=== PATIENT | female | born 1950 | race Caucasian/White ===

== ENCOUNTER → 2018-04-12 08:00 | Outpatient (CLI) | payer MEDICARE, BC, SELFPAY ==
[2018-04-12 09:25] LABS: Add Manual Diff / Slide Review NO; Basophils Percent Auto 1.1 % (0-2); Eosinophils Percent Auto 13.9 % (2-4); Hematocrit 39.4 % (36-46); Hemoglobin 13.3 g/dL (12.0-16.0); Mean Corpuscular HGB Conc 33.8 % (30-36); Mean Corpuscular Hemoglobin 29.2 PG (26-34); Mean Corpuscular Volume 86.2 fL (80-100); Monocytes Percent Auto 6.9 % (3-14); Neutrophils Absolute Auto 3200 /uL (1500-7000); Neutrophils Percent Auto 55.1 % (50-75); Platelet Count 155 X10^3/uL (150-400); Red Blood Cell Count 4.57 X10^6/uL (4.0-5.2); Red Cell Distribution Width 14.2 % (11.6-14.8); White Blood Cell Count 5.7 X10^3/uL (4.5-11.0)
[2018-04-12 09:42] LABS: Alanine Aminotransferase 21 IU/L (9-52); Albumin 4.4 g/dL (3.5-5.0); Albumin Globulin Ratio 1.2 (1.0-2.8); Alkaline Phosphatase 71 U/L (38-126); Aspartate Aminotransferase 29 IU/L (14-36); Bilirubin Total 0.6 mg/dL (0.2-1.3); Blood Urea Nitrogen 19 mg/dL (7-17); Calcium 9.6 mg/dL (8.4-10.2); Carbon Dioxide 29 mmol/L (22-32); Chloride 104 mmol/L (98-107); Cholesterol 151 mg/dL (140-199); Estimated Glomerular Filt Rate 55.5 mL/min (>60); Globulin 3.8 g/dL (1.7-4.1); Glucose 95 mg/dL (80-110); HDL Cholesterol 44 mg/dL (40-60); HEMOLYSIS < 15 (0-50); LDL Cholesterol Calculated 80 mg/dL (<100); Potassium 4.5 mmol/L (3.4-5.1); Sodium 142 mmol/L (137-145); Total Protein 8.2 g/dL (6.3-8.2); Triglycerides 135 mg/dL (35-150)
[2018-04-12 10:30] LABS: Thyroid Stimulating Hormone 4.27 uIU/mL (0.47-4.68)
== END ==
PROVIDERS: Family Provider Family Medicine; PCP Family Medicine; Visit Provider Family Medicine
DX: I10 Essential (primary) hypertension (principal)
CPT/HCPCS: 36415; 80053; 80061; 84443; 85025

== ENCOUNTER → 2018-04-26 08:26 | Outpatient (CLI) | payer MEDICARE, BC, SELFPAY ==
--- NOTE | 2018-04-26 | DI.MG.S_ITS ---
BILATERAL DIGITAL SCREENING MAMMOGRAM 3D/2D WITH CAD: 04/26/2018 CLINICAL: Routine screening. Comparison is made to exams dated: 08/31/2011 mammogram, 02/04/2009 mammogram, 01/15/2008 mammogram, 11/29/2006 mammogram, and 01/05/2005 mammogram - [facility]. The tissue of both breasts is extremely dense, which lowers the sensitivity of mammography. Current study was also evaluated with a Computer Aided Detection (CAD) system. There is a 0.7 cm oval asymmetry in the left breast middle depth upper region seen on the mediolateral oblique view only. This is best seen on LMLO tomosynthesis slice 13/44. No other significant masses, calcifications, or other findings are seen in either breast. IMPRESSION: INCOMPLETE: NEEDS ADDITIONAL IMAGING EVALUATION The oval asymmetry in the left breast is indeterminate. Additional views with possible ultrasound are recommended. This exam was interpreted at Station ID: [id number]. NOTE: For mammograms, a report in lay terms will be sent to the patient. Approximately 15% of breast malignancies will not be visualized mammographically. In the management of a palpable breast mass, a negative mammogram must not discourage biopsy of a clinically suspicious lesion. Electronically Signed By: Galen Mcfarland M.D. ecl/:04/27/2018 07:10:34 letter sent: Additional Imaging Needed ACR BI-RADS Category 0: Incomplete 3340F
== END ==
PROVIDERS: Family Provider Family Medicine; PCP Family Medicine; Visit Provider Family Medicine
DX: Z12.31 Encounter for screening mammogram for malignant neoplasm of breast (principal)
CPT/HCPCS: 77063; 77067

== ENCOUNTER → 2018-05-10 14:42 | Outpatient (CLI) | payer MEDICARE, BC, SELFPAY ==
--- NOTE | 2018-05-10 | DI.MG.S_ITS ---
UNILATERAL LEFT DIGITAL DIAGNOSTIC MAMMOGRAM 3D/2D WITH ADDITIONAL VIEWS: 05/10/2018 CLINICAL: Additional evaluation requested from prior study. Comparison is made to exams dated: 04/26/2018 mammogram, 08/31/2011 mammogram, and 02/04/2009 mammogram - [facility]. The tissue of left breast is extremely dense, which lowers the sensitivity of mammography. The asymmetry in the left breast middle depth superior region seen on the mediolateral oblique view only is not seen in additional views. No other significant masses or calcifications are seen in the breast. IMPRESSION: There is no mammographic evidence of malignancy. A 1 year screening mammogram is recommended. This exam was interpreted at Station ID: [id number]. NOTE: For mammograms, a report in lay terms will be sent to the patient. Approximately 15% of breast malignancies will not be visualized mammographically. In the management of a palpable breast mass, a negative mammogram must not discourage biopsy of a clinically suspicious lesion. Electronically Signed By: Riya Cisneros M.D. lk/:05/10/2018 15:19:42 letter sent: Normal Exam ACR BI-RADS Category 2: Benign Finding(s) 3342F
== END ==
PROVIDERS: Family Provider Family Medicine; PCP Family Medicine; Visit Provider Family Medicine
DX: R92.8 Other abnormal and inconclusive findings on diagnostic imaging of breast (principal)
CPT/HCPCS: 77065; G0279

== ENCOUNTER → 2018-11-20 09:31 | Outpatient (CLI) | payer MEDICARE, BC, SELFPAY ==
--- NOTE | 2018-11-20 | DI.MRI.S_ITS ---
PROCEDURE: MR BRAIN (IAC) WWO CON INDICATIONS: Sensorineural hearing loss, bilateral TECHNIQUE: Noncontrast sagittal T1 spin echo, axial FLAIR, axial gradient echo, axial diffusion and ADC through the brain. Axial thin-slice 3D CISS, coronal TruFISP, axial T1 spin echo with fat saturation through the internal auditory canals. After the administration of contrast, thin slice axial and coronal T1 spin echo with fat saturation through the internal auditory canals, and axial T1 spin echo with fat saturation through the brain. COMPARISON: None. FINDINGS: Image quality: Excellent. Cerebellopontine angles: No cerebellopontine angle masses. Inner ear structures appear normally formed. No suspicious enhancement in the internal auditory canal or along the course of the 7th cranial nerve. CSF spaces: Ventricles are normal in size and shape. No extra-axial fluid collections. Basal cisterns are patent. Brain: No intracranial bleeds or mass effects. Boggs-white matter interface is intact. No abnormal intracranial enhancement. Diffusion weighted images demonstrate no acute ischemic insults. Brainstem appears normal. Normal intravascular flow voids are present. Skull and face: Calvarial marrow signal is normal. Orbits appear normal. Sinuses: Sinuses and mastoids are clear. IMPRESSION: Normal for age, source of current bilateral sensorineural hearing loss symptoms is not seen. Dictated by: Castillo Peguero M.D. on 11/20/2018 at 11:42 Approved by: Castillo Peguero M.D. on 11/20/2018 at 11:43
== END ==
PROVIDERS: Family Provider Family Medicine; PCP Family Medicine; Visit Provider Otolaryngology
DX: H90.3 Sensorineural hearing loss, bilateral (principal)
CPT/HCPCS: 70553

== ENCOUNTER → 2019-05-04 09:51 | Outpatient (CLI) | payer MEDICARE, BC, SELFPAY ==
[2019-05-04 10:36] LABS: Add Manual Diff / Slide Review NO; Basophils Absolute Auto 0 /uL (0-100); Basophils Percent Auto 0.7 % (0-2); Eosinophils Absolute Auto 200 /uL (0-450); Eosinophils Percent Auto 4.4 % (2-4); Hematocrit 39.1 % (36-46); Hemoglobin 13.8 g/dL (12.0-16.0); Lymphocytes Absolute Auto 1000 /uL (1100-4500); Lymphocytes Percent Auto 18.5 % (25-40); Mean Corpuscular HGB Conc 35.2 % (30-36); Mean Corpuscular Volume 85.2 fL (80-100); Monocytes Absolute Auto 400 /uL (0-900); Monocytes Percent Auto 6.5 % (3-14); Neutrophils Absolute Auto 3900 /uL (1500-7000); Neutrophils Percent Auto 69.9 % (50-75); Platelet Count 139 X10^3/uL (150-400); Red Blood Cell Count 4.59 X10^6/uL (4.0-5.2); Red Cell Distribution Width 13.7 % (11.6-14.8); White Blood Cell Count 5.6 X10^3/uL (4.5-11.0)
[2019-05-04 10:51] LABS: Alanine Aminotransferase 15 IU/L (<35); Albumin 4.6 g/dL (3.5-5.0); Albumin Globulin Ratio 1.2 (1.0-2.8); Alkaline Phosphatase 73 U/L (38-126); Aspartate Aminotransferase 35 IU/L (14-36); BUN Creatinine Ratio 10.9 (6-22); Bilirubin Total 0.8 mg/dL (0.2-1.3); Blood Urea Nitrogen 12 mg/dL (7-17); Calcium 10.1 mg/dL (8.4-10.2); Carbon Dioxide 31 mmol/L (22-32); Chloride 103 mmol/L (98-107); Cholesterol 179 mg/dL (140-199); Estimated Glomerular Filt Rate 49.5 mL/min (>60); Globulin 3.9 g/dL (1.7-4.1); Glucose 99 mg/dL (80-110); HDL Cholesterol 46 mg/dL (40-60); HEMOLYSIS < 15 (0-50); LDL Cholesterol Calculated 110 mg/dL (<100); Sodium 144 mmol/L (137-145); Total Protein 8.5 g/dL (6.3-8.2); Triglycerides 117 mg/dL (35-150)
[2019-05-04 11:35] LABS: Thyroid Stimulating Hormone 2.17 uIU/mL (0.47-4.68)
== END ==
PROVIDERS: PCP Family Medicine; Visit Provider Family Medicine
DX: I73.00 Raynaud's syndrome without gangrene (principal); I10 Essential (primary) hypertension
CPT/HCPCS: 80053; 80061; 84443; 85025

== ENCOUNTER → 2019-05-17 16:24 | Outpatient (CLI) | payer MEDICARE, BC, SELFPAY ==
--- NOTE | 2019-05-17 16:36 | DI.MG.S_ITS ---
Patient Name: ELZA REDDING date: 1950 Sex: F Attending Physician: King Indications: Date: 05/17/2019 16:36 At the request of: MADELYN MONTEZ Procedure: MM screening mammo BI BILATERAL DIGITAL SCREENING MAMMOGRAM 3D/2D WITH CAD: 05/17/2019 CLINICAL: Routine screening. Comparison is made to exams dated: 04/26/2018 mammogram, 08/31/2011 mammogram, and 05/10/2018 mammogram - [facility]. The tissue of both breasts is extremely dense, which lowers the sensitivity of mammography. Current study was also evaluated with a Computer Aided Detection (CAD) system. No significant masses, calcifications, or other findings are seen in either breast. There has been no significant interval change. IMPRESSION: NEGATIVE There is no mammographic evidence of malignancy. A 1 year screening mammogram is recommended. This exam was interpreted at Station ID: [id number]. NOTE: For mammograms, a report in lay terms will be sent to the patient. Approximately 15% of breast malignancies will not be visualized mammographically. In the management of a palpable breast mass, a negative mammogram must not discourage biopsy of a clinically suspicious lesion. Electronically Signed By: Galen bustillos/phoebe:05/17/2019 18:58:20 letter sent: Normal Exam ACR BI-RADS Category 1: Negative 3341F
== END ==
PROVIDERS: PCP Family Medicine; Referring Provider Family Medicine; Visit Provider Family Medicine
DX: Z12.31 Encounter for screening mammogram for malignant neoplasm of breast (principal)
CPT/HCPCS: 77063; 77067

== ENCOUNTER → 2020-05-16 08:05 | Outpatient (CLI) | payer MEDICARE, BC, SELFPAY ==
[2020-05-16 08:54] LABS: BUN Creatinine Ratio 15.2 (6-22); Blood Urea Nitrogen 16 mg/dL (7-17); Calcium 9.6 mg/dL (8.4-10.2); Carbon Dioxide 33 mmol/L (22-32); Chloride 104 mmol/L (98-107); Glucose 98 mg/dL (80-110); HEMOLYSIS < 15 (0-50); Potassium 4.1 mmol/L (3.4-5.1); Sodium 142 mmol/L (137-145)
[2020-05-16 09:08] LABS: Vitamin D 25 Hydroxy (D3) 14.2 ng/mL (30.0-100.0)
[2020-05-16 09:23] LABS: TSH w/ Reflex to FT4 2.54 uIU/mL (0.47-4.68)
== END ==
PROVIDERS: PCP Student in an Organized Health Care Education/Training Program; Referring Provider Student in an Organized Health Care Education/Training Program; Visit Provider Student in an Organized Health Care Education/Training Program
DX: I10 Essential (primary) hypertension (principal)
CPT/HCPCS: 36415; 80048; 82306; 84443

== ENCOUNTER → 2020-05-19 10:19 | Outpatient (CLI) | payer MEDICARE, BC, SELFPAY ==
--- NOTE | 2020-05-19 10:21 | DI.MG.S_ITS ---
BILATERAL DIGITAL SCREENING MAMMOGRAM 3D/2D WITH CAD: 05/19/2020 Comparison is made to exams dated: 05/17/2019 mammogram, 05/10/2018 mammogram, 04/26/2018 mammogram, and 08/31/2011 mammogram - [facility]. The tissue of both breasts is extremely dense, which lowers the sensitivity of mammography. Current study was also evaluated with a Computer Aided Detection (CAD) system. No significant masses, calcifications, or other findings are seen in either breast. There has been no significant interval change. IMPRESSION: NEGATIVE There is no mammographic evidence of malignancy. A 1 year screening mammogram is recommended. This exam was interpreted at Station ID: [id number]. NOTE: For mammograms, a report in lay terms will be sent to the patient. Approximately 15% of breast malignancies will not be visualized mammographically. In the management of a palpable breast mass, a negative mammogram must not discourage biopsy of a clinically suspicious lesion. Electronically Signed By: Suman moore/phoebe:05/19/2020 16:32:38 letter sent: Normal Exam ACR BI-RADS Category 1: Negative 3341F
== END ==
PROVIDERS: PCP Family Medicine; Referring Provider Family Medicine; Visit Provider Family Medicine
DX: Z12.31 Encounter for screening mammogram for malignant neoplasm of breast (principal)
CPT/HCPCS: 77063; 77067

== ENCOUNTER → 2020-05-23 09:57 | Outpatient (CLI) | payer MEDICARE, BC, SELFPAY | PROVIDERS: PCP Student in an Organized Health Care Education/Training Program; Referring Provider Student in an Organized Health Care Education/Training Program; Visit Provider Student in an Organized Health Care Education/Training Program | DX: Z13.820 Encounter for screening for osteoporosis (principal); M81.0 Age-related osteoporosis without current pathological fracture; Z78.0 Asymptomatic menopausal state; I10 Essential (primary) hypertension; R63.6 Underweight; Z87.891 Personal history of nicotine dependence | CPT/HCPCS: 77080; 77081 ==

== ENCOUNTER 2020-09-01 06:56 | Emergency (ER) | payer MEDICARE, BC, SELFPAY ==
--- NOTE | 2020-09-01 07:05 | ED.GENADULT ---
HPI - General Adult General Chief complaint: Extremity Injury, Upper Stated complaint: right shoulder pain Time Seen by Provider: 09/01/20 06:58 Source: patient Mode of arrival: Ambulatory Limitations: no limitations History of Present Illness HPI narrative: Patient is a 70-year-old female who is here for evaluation of left shoulder discomfort. Despite the triage note/chief complaint that is her right shoulder she informed me that it was her left shoulder that she was having discomfort with. She states she had some discomfort yesterday. She was sleeping at the time and it woke her from sleep. It lasted for approximately 1 hour and then completely resolved. She was able to go about the rest of her day without any problems. This past morning she again was woken from sleep with discomfort in the left shoulder. This time and is lasted until this morning. She is afebrile. She denies any trauma. Denies falling. States that it does feel somewhat better with touching it. No pain with movement. No chest pain. No shortness of breath. No rashes. Related Data Home Medications Medication Instructions Recorded Confirmed CALCIUM/PHYTONADIONE/SODIUM/ 1 ctb PO Q DAY #0 08/16/11 07/24/20 (#VIACTIV CALCIUM) cetirizine 10 mg tablet 10 mg PO DAILY PRN tab 05/15/20 07/24/20 Previous Rx's Medication Instructions Recorded gentamicin 0.3 % eye drops 2 drop OPHTHALMIC (EYE) TID #5 ml 08/15/19 atenolol 50 mg tablet 50 mg PO Q DAY #90 tab 05/29/20 denosumab 60 mg/mL subcutaneous 60 mg SUBCUT [id number] #1 ml 06/19/20 syringe montelukast 10 mg tablet See Rx Instructions .ROUTE 08/13/20 .COMPLEX #90 tab Allergies Allergy/AdvReac Type Severity Reaction Status Date / Time aspirin [ASPIRIN] Allergy Mild SEVERE Verified 07/24/20 11:11 ILLNESS ON PERCODAN codeine [CODEINE] Allergy Mild HEADACHE Verified 07/24/20 11:11 oxycodone [OXYCODONE] Allergy Mild SEVERE Verified 07/24/20 11:11 ILLNESS FROM PERCODAN UNABLE TO TAKE LARGE PILLS Allergy Unknown Uncoded 07/24/20 11:11 Review of Systems Constitutional Constitutional: Denies headache(s) ENT Ears, Nose, Mouth, and Throat: Denies headache(s) Cardiovascular Cardiovascular: Denies chest pain and Denies dyspnea Respiratory Respiratory: Denies dyspnea Gastrointestinal Gastrointestinal: Denies abdominal pain Musculoskeletal Comments: Left shoulder pain Integumentary/Breasts Skin/Breast: Denies rash Neurologic Neurologic: Denies headache(s) and Denies paresthesias Hematologic/Lymphatic On Anticoagulants: No Allergic/Immunologic Allergic/Immunologic: Denies urticaria Patient History Medical History Essential hypertension Hearing problem Osteoporosis Seasonal allergies Surgical History Anesthesia Femur fracture (~2011) History of tonsillectomy (~1969) Status post cholecystectomy (~1983) Status post colonoscopy (~2008) Wrist fracture (~2011) Family History Brother Age: 66 Diabetes mellitus Heart disease Grandfather Stroke Mother Osteoporosis Hypertension Social History Smoking Status: Former smoker Smoking Status: Former smoker Exam Initial Vital Signs Initial Vital Signs: Vital Signs Temperature 98.3 F 09/01/20 07:06 Pulse Rate 66 09/01/20 07:06 Respiratory Rate 16 09/01/20 07:06 Blood Pressure 172/92 H 09/01/20 07:06 Pulse Oximetry 97 09/01/20 07:06 Const General: cooperative and comfortable Limitations: mental status not altered HENMT Head: normal to inspection and normocephalic Chest Chest: No tenderness Resp Effort & Inspection: normal respiratory effort Auscultation: clear to auscultation bilaterally Cardio Rate: regular rate Rhythm: regular rhythm Skin Lesions: no lesions Rashes: no rashes Neuro General: patient alert, patient awake and patient oriented x3 Cognition: normal cognition Gait: normal gait Extrem Other: Left wrist and left elbow does not have any discomfort with movement. At baseline she has problem with supination and this does not change any problems with her left shoulder. She is able to forward flex and abduct without discomfort. No tenderness to palpation over the rhomboids. No tenderness to palpation over the biceps tendon. No tenderness over the deltoid. Psych Appearance: grossly normal and well kempt Course Orders Ordered: ED Orders 09/01/20 07:11 EKG-12 Lead Stat 09/01/20 07:27 Complete Blood Count AUTO DIFF Stat Comprehensive Metabolic Panel Stat Lipase Stat Troponin & CK Cardiac Panel Stat Discontinued Medications Ketorolac Tromethamine (Ketorolac 30 Mg/Ml Vial) 30 mg IM NOW ONE Stop: 09/01/20 07:28 Last Admin: 09/01/20 07:45 Dose: 30 mg Documented by: Vital Signs Vital signs: Vital Signs - 8 hr 09/01/20 07:06 Temperature 98.3 F Pulse Rate 66 Respiratory Rate 16 Blood Pressure 172/92 H Pulse Oximetry 97 Medical Decision Making Medical Records Medical records reviewed: Yes I reviewed the patient's medical records. Lab Data Lab results reviewed: Yes I reviewed the patient's lab results. Result diagrams: 09/01/20 07:45 09/01/20 07:45 Labs: Lab Results 09/01/20 09/01/20 Range/Units 07:45 07:45 WBC 4.2 L (4.5-11.0) X10^3/uL RBC 4.46 (4.0-5.2) X10^6/uL Hgb 12.9 (12.0-16.0) g/dL Hct 37.7 (36-46) % MCV 84.6 (80-100) fL MCH 28.8 (26-34) PG MCHC 34.1 (30-36) % RDW 13.9 (11.6-14.8) % Plt Count 127 L (150-400) X10^3/uL Neut % (Auto) 67.3 (50-75) % Lymph % (Auto) 18.8 L (25-40) % [place] % (Auto) 7.9 (3-14) % Eos % (Auto) 4.6 H (2-4) % Baso % (Auto) 1.4 (0-2) % Neut # (Auto) 2800 (6753-6795) /uL Lymph # (Auto) 800 L (6887-5259) /uL [place] # (Auto) 300 (0-900) /uL Eos # (Auto) 200 (0-450) /uL Baso # (Auto) 100 (0-100) /uL Sodium 142 (137-145) mmol/L Potassium 4.2 (3.4-5.1) mmol/L Chloride 106 (98-107) mmol/L Carbon Dioxide 25 (22-32) mmol/L BUN 19 H (7-17) mg/dL Creatinine 0.91 (0.52-1.04) mg/dL Estimated GFR > 60.0 (>60) mL/min BUN/Creatinine Ratio 20.9 (6-22) Glucose 101 (80-110) mg/dL Calcium 9.8 (8.4-10.2) mg/dL Total Bilirubin 0.4 (0.2-1.3) mg/dL AST 25 (14-36) IU/L ALT 10 (<35) IU/L Alkaline Phosphatase 60 (38-126) U/L Total Creatine Kinase 39 (30-135) U/L CK-MB (CK-2) TNP CK-MB (CK-2) Rel Index TNP Troponin I < 0.012 (0.01-0.034) ng/mL Total Protein 8.1 (6.3-8.2) g/dL Albumin 4.3 (3.5-5.0) g/dL Globulin 3.8 (1.7-4.1) g/dL Albumin/Globulin Ratio 1.1 (1.0-2.8) Lipase 341 H (23-300) U/L ECG Data Attestation: I personally reviewed and interpreted this ECG as follows: Prior ECG tracings: not available for review Interpretation: Normal sinus rhythm Ventricular rate is 62 Normal axis Normal QRS Normal QTC Some artifact noted Nonspecific ST T wave changes MDM Narrative Medical decision making narrative: Her EKG has nonspecific changes but her labs are unremarkable to include her troponin which is greater than 6 hours after the onset of constant discomfort. This was drawn because she did not have a specific reproducible discomfort. She has no skin changes over the area. She denies any trauma. Low suspicion for fracture or dislocation. Given her workup here in the emergency department I do suspect that this is musculoskeletal in origin. She was given Toradol. She was given thinks she could try at home to help with the discomfort. Was given return precautions. I feel patient be safely discharged home without further workup. She expressed understanding and agreement. Discharge Plan Departure Patient Disposition: Home Clinical Impression: Acute pain of left shoulder Instructions: How To Perform RICE (Rest, Ice, Compress, Elevate), DI for Shoulder Pain Activity Restrictions/Additional Instructions: You have no restrictions on your activities however I do recommend that you limit the use of your left arm today. You can take Tylenol/ibuprofen this evening. Also recommend icing the area. Contact your primary provider for follow-up especially if your symptoms are not improving. Return to the emergency department for any new or worsening symptoms Prescriptions: No Action CALCIUM/PHYTONADIONE/SODIUM/ (#VIACTIV CALCIUM) 1 ctb PO Q DAY Qty: 0 RF: 0 gentamicin 0.3 % drops 2 drop ophthalmic (eye) TID Qty: 5 RF: 0 atenolol 50 mg tablet 50 mg PO Q DAY Qty: 90 RF: 3 Prolia 60 mg/mL syringe 60 mg SUBCUT [id number] Qty: 1 RF: 2 montelukast 10 mg tablet See Rx Instructions .ROUTE .COMPLEX Qty: 90 RF: 3 cetirizine [Zyrtec] 10 mg tablet 10 mg PO DAILY PRNRF: 0 Referrals: Jean Carlos Liu DO [Primary Care Provider] -
[2020-09-01 07:06] VITALS: BP 172/92; PULSE 66; RESP 16; TEMP 36.8; O2SAT 97; BMI 16.0
[2020-09-01] MEDS: KETOROLAC 30 MG/ML VIAL IM (07:45)
[2020-09-01 07:54] LABS: Add Manual Diff / Slide Review NO; Basophils Absolute Auto 100 /uL (0-100); Basophils Percent Auto 1.4 % (0-2); Eosinophils Absolute Auto 200 /uL (0-450); Eosinophils Percent Auto 4.6 % (2-4); Hematocrit 37.7 % (36-46); Hemoglobin 12.9 g/dL (12.0-16.0); Lymphocytes Absolute Auto 800 /uL (1100-4500); Lymphocytes Percent Auto 18.8 % (25-40); Mean Corpuscular HGB Conc 34.1 % (30-36); Mean Corpuscular Hemoglobin 28.8 PG (26-34); Mean Corpuscular Volume 84.6 fL (80-100); Monocytes Absolute Auto 300 /uL (0-900); Monocytes Percent Auto 7.9 % (3-14); Neutrophils Absolute Auto 2800 /uL (1500-7000); Neutrophils Percent Auto 67.3 % (50-75); Platelet Count 127 X10^3/uL (150-400); Red Blood Cell Count 4.46 X10^6/uL (4.0-5.2); Red Cell Distribution Width 13.9 % (11.6-14.8); White Blood Cell Count 4.2 X10^3/uL (4.5-11.0)
[2020-09-01 08:17] LABS: Alanine Aminotransferase 10 IU/L (<35); Albumin 4.3 g/dL (3.5-5.0); Albumin Globulin Ratio 1.1 (1.0-2.8); Alkaline Phosphatase 60 U/L (38-126); Aspartate Aminotransferase 25 IU/L (14-36); BUN Creatinine Ratio 20.9 (6-22); Bilirubin Total 0.4 mg/dL (0.2-1.3); Blood Urea Nitrogen 19 mg/dL (7-17); Calcium 9.8 mg/dL (8.4-10.2); Carbon Dioxide 25 mmol/L (22-32); Chloride 106 mmol/L (98-107); Creatine Kinase 39 U/L (30-135); Estimated Glomerular Filt Rate > 60.0 mL/min (>60); Globulin 3.8 g/dL (1.7-4.1); Glucose 101 mg/dL (80-110); HEMOLYSIS 18 (0-50); Lipase 341 U/L (23-300); Potassium 4.2 mmol/L (3.4-5.1); Sodium 142 mmol/L (137-145); Total Protein 8.1 g/dL (6.3-8.2)
[2020-09-01 08:28] LABS: Troponin I < 0.012 ng/mL (0.01-0.034)
[2020-09-01 08:46] VITALS: BP 148/98; PULSE 78; O2SAT 98
== END 2020-09-01 08:48 | disposition home or self-care (01) ==
PROVIDERS: Emergency Provider Emergency Medicine; PCP Family Medicine
DX: M25.512 Pain in left shoulder (principal)
CPT/HCPCS: 36415; 80053; 82550; 83690; 84484; 85025; 93005; 96372; 99283; 99284; J1885

== ENCOUNTER → 2021-07-03 07:44 | Outpatient (CLI) | payer MEDICARE, BC, SELFPAY ==
[2021-07-03 10:05] LABS: Hematocrit 35.3 % (36-46); Hemoglobin 12.3 g/dL (12.0-16.0); Mean Corpuscular HGB Conc 34.8 % (30-36); Mean Corpuscular Hemoglobin 29.6 PG (26-34); Mean Corpuscular Volume 85.1 fL (80-100); Platelet Count 155 X10^3/uL (150-400); Red Blood Cell Count 4.14 X10^6/uL (4.0-5.2); Red Cell Distribution Width 14.9 % (11.6-14.8); White Blood Cell Count 4.4 X10^3/uL (4.5-11.0)
[2021-07-03 10:07] LABS: Add Manual Diff / Slide Review YES
[2021-07-03 10:19] LABS: Vitamin D 25 Hydroxy (D3) 56.2 ng/mL (30.0-100.0)
[2021-07-03 10:25] LABS: Alanine Aminotransferase 11 IU/L (<35); Albumin 4.4 g/dL (3.5-5.0); Albumin Globulin Ratio 1.3 (1.0-2.8); Alkaline Phosphatase 58 U/L (38-126); Aspartate Aminotransferase 24 IU/L (14-36); BUN Creatinine Ratio 29.9 (6-22); Bilirubin Total 0.5 mg/dL (0.2-1.3); Blood Urea Nitrogen 32 mg/dL (7-17); Calcium 9.9 mg/dL (8.4-10.2); Carbon Dioxide 24 mmol/L (22-32); Chloride 107 mmol/L (98-107); Cholesterol 185 mg/dL (140-199); Estimated Glomerular Filt Rate 50.7 mL/min (>60); Globulin 3.5 g/dL (1.7-4.1); Glucose 92 mg/dL (80-110); HDL Cholesterol 64 mg/dL (40-60); HEMOLYSIS < 15 (0-50); LDL Cholesterol Calculated 100 mg/dL (<100); Potassium 4.3 mmol/L (3.4-5.1); Sodium 139 mmol/L (137-145); Total Protein 7.9 g/dL (6.3-8.2); Triglycerides 106 mg/dL (35-150)
[2021-07-03 10:31] LABS: Anisocytosis 1+; Neutrophils Absolute Manual 2816 /uL (3000-5900); Total Cells Counted 100
== END ==
PROVIDERS: PCP Family Medicine; Referring Provider Family Medicine; Visit Provider Family Medicine
DX: I10 Essential (primary) hypertension (principal); E55.9 Vitamin D deficiency, unspecified; M81.0 Age-related osteoporosis without current pathological fracture; N18.31 Chronic kidney disease, stage 3a
CPT/HCPCS: 36415; 80053; 80061; 82306; 85007; 85025

== ENCOUNTER 2022-03-09 23:33 | Inpatient (IN) | payer MEDICARE, BC, SELFPAY ==
--- NOTE | 2022-03-09 23:35 | DI.RAD.S_ITS ---
PROCEDURE: XR WRIST RT MIN 3V INDICATIONS: fall with wrist pain TECHNIQUE: 4 views of the wrist were acquired. COMPARISON: [facility], , WRIST MINIMUM 3 VIEWS LEFT, 11/11/2011, 22:05. FINDINGS: Bones: There is a mildly impacted dorsal fracture of the distal radial metaphysis. Visualized osseous structures appear osteopenic. No suspicious bony lesions. Scaphoid view: The scaphoid appears intact. Soft tissues: No suspicious soft tissue calcifications. IMPRESSION: 1. Mildly impacted dorsal fracture of the distal radius. Dictated by: Jonathon Sullivan M.D. on 03/10/2022 at 0:33 Approved by: Jonathon Sullivan M.D. on 03/10/2022 at 0:34
--- NOTE | 2022-03-09 23:35 | DI.RAD.S_ITS ---
PROCEDURE: XR HAND RT MIN 3V INDICATIONS: fall with hand/wrist pain TECHNIQUE: Three views of the right hand acquired. COMPARISON: None. FINDINGS: Bones: There is a mildly impacted dorsal fracture of the distal radius. No definite fracture or dislocation in the hand. Carpal bones are normally aligned. Visualized osseous structures appear osteopenic. No suspicious bony lesions. Soft tissues: No suspicious soft tissue calcifications. IMPRESSION: 1. Mildly impacted fracture of the dorsal radius distally. Dictated by: Jonathon Sullivan M.D. on 03/10/2022 at 0:35 Approved by: Jonathon Sullivan M.D. on 03/10/2022 at 0:36
--- NOTE | 2022-03-09 23:35 | DI.RAD.S_ITS ---
PROCEDURE: XR HIP W PEL IF DONE RT 2V INDICATIONS: fall with hip pain TECHNIQUE: AP pelvis with lateral view of the left hip. COMPARISON: None. FINDINGS: Bones: There is a mildly impacted subcapital fracture of the right femoral neck. Postsurgical changes are demonstrated within the left hip status post prior ORIF of a left femoral neck fracture. Pelvic ring appears intact. No suspicious bony lesions. Soft tissues: The visualized bowel gas pattern is normal. No suspicious soft tissue calcifications. IMPRESSION: 1. Mildly impacted right femoral neck fracture. Dictated by: Jonathon Sullivan M.D. on 03/10/2022 at 1:31 Approved by: Jonathon Sullivan M.D. on 03/10/2022 at 1:32
[2022-03-09 23:37] VITALS: BP 157/89; PULSE 67; RESP 16; TEMP 36.5; O2SAT 97
[2022-03-10] VITALS (7 sets, daily range): BP systolic 101–154; BP diastolic 61–91; PULSE 60–97; RESP 14–20; TEMP 36.4–37.8; O2SAT 93–100; BMI 19.3; BMI 16.6
--- NOTE | 2022-03-10 01:12 | ED_ITS ---
HPI - Trauma General Chief Complaint: Extremity Injury, Upper Stated Complaint: GLF/rt wrist&hip pain Time Seen by Provider: 03/09/22 23:35 Source: EMS Mode of arrival: EMS History of Present Illness HPI narrative: 71-year-old female former smoker with history of speech deficit, dysphagia, aortic valve calcification and cardiomegaly presents by EMS for evaluation of a ground level fall which resulted in right wrist and hip injury. She denies any prodromal symptoms such as dizziness, weakness or lightheadedness and states that she had fallen earlier today suffering injuries as stated. Both wrist and hip have increased pain with range of motion and palpation. She denies any head neck or back pain. She denies any chest pain or shortness of breath. She is had no nausea, vomiting or diarrhea. Related Data Home Medications Medication Instructions Recorded Confirmed CALCIUM/PHYTONADIONE/SODIUM/ 1 ctb PO Q DAY ##0 08/16/11 07/23/21 (#VIACTIV CALCIUM) cetirizine 10 mg tablet (Zyrtec) 10 mg PO DAILY PRN 05/15/20 07/23/21 Previous Rx's Medication Instructions Recorded gentamicin 0.3 % eye drops 2 drop ophthalmic (eye) TID #5 mL 08/15/19 denosumab 60 mg/mL subcutaneous 60 mg SUBCUT [id number] #1 mL 06/19/20 syringe (Prolia) montelukast 10 mg tablet See Rx Instructions .Route 08/13/20 .COMPLEX #90 tabs diltiazem HCl 360 mg 360 mg PO DAILY #90 caps 10/09/21 capsule,extended release 24 hr Allergies Allergy/AdvReac Type Severity Reaction Status Date / Time aspirin [ASPIRIN] Allergy Mild SEVERE Verified 07/23/21 13:44 ILLNESS ON PERCODAN codeine [CODEINE] Allergy Mild HEADACHE Verified 07/23/21 13:44 oxycodone [OXYCODONE] Allergy Mild SEVERE Verified 07/23/21 13:44 ILLNESS FROM PERCODAN UNABLE TO TAKE LARGE PILLS Allergy Unknown Uncoded 07/23/21 13:44 Review of Systems Review of Systems Narrative: GENERAL: Denies chills, fatigue, malaise, fever, sweats. HEENT: Denies sinus pain, ear pain, sore throat, difficulty swallowing, dizz iness. RESPIRATORY: Denies dyspnea, cough, wheezing, hemoptysis, sputum. CARDIOVASCULAR: Denies chest pain, palpitations, orthopnea, edema, GASTROINTESTINAL: Denies nausea, vomiting, abdominal pain, diarrhea, constipation, melena. : Denies dysuria, frequency, incontinence, hematuria, urinary retention. MUSCULOSKELETAL: See HPI SKIN: Denies rash, skin lesions, or other NEUROLOGIC: Denies weakness, headache, numbness, change in speech, confusion, seizures, incoordination. PSYCHIATRIC: No concerning psychosocial issues. 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 Essential hypertension Hearing problem Medicare annual wellness visit, subsequent Osteoporosis Respiratory infection Seasonal allergies Surgical History Anesthesia Femur fracture (~2011) History of tonsillectomy (~1969) Status post cholecystectomy (~1983) Status post colonoscopy (~2008) Wrist fracture (~2011) Family History Brother Age: 68 Diabetes mellitus Heart disease Grandfather Stroke Mother Osteoporosis Hypertension Social History Smoking Status: Former smoker Smoking Status: Former smoker Substance Use Type: does not use Exam Narrative Exam Narrative: GENERAL: [71] year old patient appears stated age. Well-developed patient, in mild distress. Nonverbal but with full understanding and able to communicate by nonverbal methods in by the written word HEAD: Atraumatic. Normocephalic. EYES: Pupils equal round and reactive. Extraocular motions intact. No scleral icterus. No injection or drainage. ENT: Nose without bleeding, purulent drainage. Throat without erythema, tonsillar hypertrophy or exudate. Airway patent. NECK: Trachea midline. Non tender CARDIOVASCULAR: Regular rate and rhythm without murmurs, gallops, or rubs. RESPIRATORY: Clear to auscultation. Breath sounds equal bilaterally. No wheezes, rales, or rhonchi. GASTROINTESTINAL: Abdomen soft, non-tender, nondistended. EXTREMITIES: Tenderness to palpation of right wrist with some dark purple ecchymosis, increased pain with range of motion and palpation, this is closed and neurovascularly intact. Additionally she has pain in her right hip without shortening or external rotation. Neurovascularly intact distal to the injury BACK: Nontender without deformity or crepitance. No flank tenderness. NEURO: AOx3. SKIN: No rash or erythema of visible areas Initial Vital Signs Initial Vital Signs: Vital Signs Temperature 97.7 F 03/09/22 23:37 Pulse Rate 67 03/09/22 23:37 Respiratory Rate 16 03/09/22 23:37 Blood Pressure 157/89 H 03/09/22 23:37 Pulse Oximetry 97 03/09/22 23:37 Oxygen Delivery Method 03/09/22 23:37 Procedures Orthopedic Splinting/Casting Injury #1: Side: right Upper Extremity Injury Location: wrist Upper Extremity Immobilizer: volar splint Post splinting neuro exam: intact Post splinting vascular exam: intact Course Orders Ordered: ED Orders 03/09/22 23:35 XR hand RT min 3V Stat XR hip w pel if done RT 2V Stat XR wrist RT min 3V Stat 03/10/22 01:45 COVID19 -Nasal RAPID/Pre-Proc Stat 03/10/22 02:03 CBC Auto Diff [Complete Blood Count AUTO DIFF] Stat CMP [Comprehensive Metabolic Panel] Stat Prothrombin Time INR Stat Discontinued Medications Hydromorphone HCl (Hydromorphone 0.5 Mg Inj) 0.5 mg IV NOW ONE Stop: 03/10/22 02:49 Last Admin: 03/10/22 02:53 Dose: 0.5 mg Documented By: AP Ondansetron HCl (Ondansetron 4 Mg/2 Ml Inj) 4 mg IV NOW ONE Stop: 03/10/22 02:49 Last Admin: 03/10/22 02:52 Dose: 4 mg Documented By: AP Vital Signs Vital signs: Vital Signs - 8 hr 03/09/22 23:37 03/10/22 02:09 Temperature 97.7 F Pulse Rate 67 60 Respiratory Rate 16 16 Blood Pressure 157/89 H 142/80 H Pulse Oximetry 97 97 Oxygen Delivery Method Room Air Room Air MDM - Trauma Lab Data Result diagrams: 03/10/22 02:03 03/10/22 02:03 Labs: Lab Results 03/10/22 03/10/22 03/10/22 Range/Units 01:45 02:03 02:03 WBC 12.7 H (4.5-11.0) X10^3/uL RBC 4.21 (4.0-5.2) X10^6/uL Hgb 12.4 (12.0-16.0) g/dL Hct 36.0 (36-46) % MCV 85.6 (80-100) fL MCH 29.4 (26-34) PG MCHC 34.3 (30-36) % RDW 14.2 (11.6-14.8) % Plt Count 185 (150-400) X10^3/uL Neut % (Auto) 91.0 H (50-75) % Lymph % (Auto) 5.5 L (25-40) % Cameron % (Auto) 3.2 (3-14) % Eos % (Auto) 0.0 L (2-4) % Baso % (Auto) 0.3 (0-2) % Neut # (Auto) 42520 H (7735-7837) /uL Lymph # (Auto) 700 L (9542-9172) /uL Cameron # (Auto) 400 (0-900) /uL Eos # (Auto) 0 (0-450) /uL Baso # (Auto) 0 (0-100) /uL PT 14.9 H (10.1-12.7) SECONDS INR 1.3 (0.9-1.3) Sodium (137-145) mmol/L Potassium (3.4-5.1) mmol/L Chloride (98-107) mmol/L Carbon Dioxide (22-32) mmol/L BUN (7-17) mg/dL Creatinine (0.52-1.04) mg/dL Estimated GFR (>60) mL/min BUN/Creatinine Ratio (6-22) Glucose (80-110) mg/dL Calcium (8.4-10.2) mg/dL Total Bilirubin (0.2-1.3) mg/dL AST (14-36) IU/L ALT (<35) IU/L Alkaline Phosphatase (38-126) U/L Total Protein (6.3-8.2) g/dL Albumin (3.5-5.0) g/dL Globulin (1.7-4.1) g/dL Albumin/Globulin Ratio (1.0-2.8) SARS-CoV-2 (PCR) Negative (Negative) 03/10/22 Range/Units 02:03 WBC (4.5-11.0) X10^3/uL RBC (4.0-5.2) X10^6/uL Hgb (12.0-16.0) g/dL Hct (36-46) % MCV (80-100) fL MCH (26-34) PG MCHC (30-36) % RDW (11.6-14.8) % Plt Count (150-400) X10^3/uL Neut % (Auto) (50-75) % Lymph % (Auto) (25-40) % Cameron % (Auto) (3-14) % Eos % (Auto) (2-4) % Baso % (Auto) (0-2) % Neut # (Auto) (5832-2955) /uL Lymph # (Auto) (1376-9017) /uL Cameron # (Auto) (0-900) /uL Eos # (Auto) (0-450) /uL Baso # (Auto) (0-100) /uL PT (10.1-12.7) SECONDS INR (0.9-1.3) Sodium 143 (137-145) mmol/L Potassium 4.6 (3.4-5.1) mmol/L Chloride 106 (98-107) mmol/L Carbon Dioxide 26 (22-32) mmol/L BUN 27 H (7-17) mg/dL Creatinine 1.21 H (0.52-1.04) mg/dL Estimated GFR 48 L (>60) mL/min BUN/Creatinine Ratio 22.3 H (6-22) Glucose 102 (80-110) mg/dL Calcium 9.8 (8.4-10.2) mg/dL Total Bilirubin 0.9 (0.2-1.3) mg/dL AST 51 H (14-36) IU/L ALT 30 (<35) IU/L Alkaline Phosphatase 66 (38-126) U/L Total Protein 7.9 (6.3-8.2) g/dL Albumin 4.5 (3.5-5.0) g/dL Globulin 3.4 (1.7-4.1) g/dL Albumin/Globulin Ratio 1.3 (1.0-2.8) SARS-CoV-2 (PCR) (Negative) Imaging Data Extremity x-ray #1: Radiologist's Impression: Sethi,Veronika L??71??F??1950 ? Allergy/Adv: aspirin, codeine, oxycodone, [UNABLE TO TAKE LARGE PILLS] (More??) Close Wrist X-Ray (Signed) Sullivan,Jonathon - 03/09/22 Hip X-Ray 03/09/22 Hand X-Ray (Signed) Jonathon Sullivan - 03/09/22 DEXA Result 05/23/20 Bone Densitometry 05/23/20 Mammogram Screening (Signed) Angel Kellern - 05/19/20 Mammogram Screening (Signed) Galen Mcfarland - 05/17/19 MRI Orbit/Face/Neck/IAC (Signed) Castillo Peguero - 11/20/18 Mammogram, Additional Views (Signed) BlayneRiya - 05/10/18 Mammogram Screening (Signed) Galen Mcfarland - 04/26/18 Launch?Image [address] [address] XRay Report Signed Patient: Veronika Sethi MR#: [id number] : 1950 Acct:[id number] Age/Sex: 71 / F Date of Service: 03/09/22 Loc: Accession Number: [id number] ?? Procedure: XR wrist RT min 3V Ordering Provider: Roger Ledezma D.O. PROCEDURE:? XR WRIST RT MIN 3V ? INDICATIONS: fall with wrist pain ? TECHNIQUE:? 4 views of the wrist were acquired.? ? COMPARISON:? [facility], WRIST MINIMUM 3 VIEWS LEFT, 11/11/2011, 22:05. ? FINDINGS:? ? Bones:? There is a mildly impacted dorsal fracture of the distal radial metaphysis.? Visualized osseous structures appear osteopenic.? No suspicious bony lesions.? ? Scaphoid view:? The scaphoid appears intact. ? Soft tissues:? No suspicious soft tissue calcifications.? ? IMPRESSION:? ? 1. Mildly impacted dorsal fracture of the distal radius. ? ? Dictated by: Jonathon Sullivan M.D. on 03/10/2022 at 0:33 ? ? Approved by: Jonathon Sullivan M.D. on 03/10/2022 at 0:34 ? Abdominal x-ray: Radiologist's Impression: [address] [address] XRay Report Signed Patient: Veronika Sethi MR#: [id number] : 1950 Acct:[id number] Age/Sex: 71 / F Date of Service: 03/09/22 Loc: ED Accession Number: [id number] ?? Procedure: XR hip w pel if done RT 2V Ordering Provider: Roger Ledezma D.O. PROCEDURE:? XR HIP W PEL IF DONE RT 2V ? INDICATIONS:? fall with hip pain ? TECHNIQUE:? AP pelvis with lateral view of the left hip. ? COMPARISON:? None. ? FINDINGS:? ? Bones:? There is a mildly impacted subcapital fracture of the right femoral neck.? Postsurgical changes are demonstrated within the left hip status post prior ORIF of a left femoral neck fracture.? Pelvic ring appears intact.? No suspicious bony lesions.? ? Soft tissues:? The visualized bowel gas pattern is normal.? No suspicious soft tissue calcifications.? ? ? IMPRESSION:? ? 1. Mildly impacted right femoral neck fracture. ? Dictated by: Jonathon Sullivan M.D. on 03/10/2022 at 1:31 ? ? Approved by: Jonathon Sullivan M.D. on 03/10/2022 at 1:32 ? Discharge Plan Departure Patient Disposition: Admitted As Inpatient Clinical Impression: Closed fracture of right hip, Distal radial fracture Admit Date/Time: 03/10/22 02:32 Admit Provider: Conrad Graham
[2022-03-10 02:01] LABS: COVID19 -Nasal RAPID Negative (Negative)
[2022-03-10 02:10] LABS: Add Manual Diff / Slide Review NO; Basophils Absolute Auto 0 /uL (0-100); Basophils Percent Auto 0.3 % (0-2); Eosinophils Absolute Auto 0 /uL (0-450); Hemoglobin 12.4 g/dL (12.0-16.0); Lymphocytes Absolute Auto 700 /uL (1100-4500); Lymphocytes Percent Auto 5.5 % (25-40); Mean Corpuscular HGB Conc 34.3 % (30-36); Mean Corpuscular Hemoglobin 29.4 PG (26-34); Mean Corpuscular Volume 85.6 fL (80-100); Monocytes Absolute Auto 400 /uL (0-900); Monocytes Percent Auto 3.2 % (3-14); Neutrophils Absolute Auto 11500 /uL (1500-7000); Platelet Count 185 X10^3/uL (150-400); Red Blood Cell Count 4.21 X10^6/uL (4.0-5.2); Red Cell Distribution Width 14.2 % (11.6-14.8); White Blood Cell Count 12.7 X10^3/uL (4.5-11.0)
[2022-03-10 02:17] LABS: INR 1.3 (0.9-1.3); Prothrombin Time 14.9 SECONDS (10.1-12.7)
[2022-03-10 02:21] LABS: Alanine Aminotransferase 30 IU/L (<35); Albumin 4.5 g/dL (3.5-5.0); Albumin Globulin Ratio 1.3 (1.0-2.8); Alkaline Phosphatase 66 U/L (38-126); Aspartate Aminotransferase 51 IU/L (14-36); BUN Creatinine Ratio 22.3 (6-22); Bilirubin Total 0.9 mg/dL (0.2-1.3); Blood Urea Nitrogen 27 mg/dL (7-17); Calcium 9.8 mg/dL (8.4-10.2); Carbon Dioxide 26 mmol/L (22-32); Chloride 106 mmol/L (98-107); Estimated Glomerular Filt Rate 48 mL/min (>60); Globulin 3.4 g/dL (1.7-4.1); Glucose 102 mg/dL (80-110); HEMOLYSIS < 15 (0-50); Potassium 4.6 mmol/L (3.4-5.1); Sodium 143 mmol/L (137-145); Total Protein 7.9 g/dL (6.3-8.2)
[2022-03-10] MEDS: ONDANSETRON 4 MG/2 ML INJ IV ×2 (02:52→08:52)
[2022-03-10] MEDS: HYDROMORPHONE 0.5 MG INJ IV ×3 (02:53→20:34)
--- NOTE | 2022-03-10 05:08 | P.HP_ITS ---
History of Present Illness History of Present Illness Chief complaint: GLF/rt wrist&hip pain Narrative: 71-year-old female former smoker with history of speech deficit, dysphagia, aortic valve calcification and cardiomegaly presents by EMS for evaluation of a ground level fall which resulted in right wrist and hip injury.? She denies any prodromal symptoms such as dizziness, weakness or lightheadedness and states that she had fallen earlier today suffering injuries as stated.? Both wrist and hip have increased pain with range of motion and palpation.? She denies any head neck or back pain.? She denies any chest pain or shortness of breath.? She is had no nausea, vomiting or diarrhea.I called patient daughter Ms. Rao who works here at [facility], confirms more details regarding patient's overall status of health. Patient is been having weight loss for almost 1 year, attributed to poor eating and poor swallowing efforts. She had an extensive malignancy workup done as an outpatient, negative. She does have speech therapy appointment today for swallow evaluation, unclear etiology are no specific diagnosis given at this time. Patient communicates mostly by writing on the white board. Patient was in pain when I saw her on the floor, improved with Dilaudid. After pain medication, she looks more comfortable. It is unclear from the notes are the history whether patient is on diltiazem for irregular heart rate versus just hypotension? 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 Essential hypertension Hearing problem Medicare annual wellness visit, subsequent Osteoporosis Respiratory infection Seasonal allergies Surgical History Anesthesia Femur fracture (~2011) History of tonsillectomy (~1969) Status post cholecystectomy (~1983) Status post colonoscopy (~2008) Wrist fracture (~2011) Family & Social History Family History Brother Age: 68 Diabetes mellitus Heart disease Grandfather Stroke Mother Osteoporosis Hypertension Safety & Behavioral: Feels Safe in Current Yes Environment Been Physically Hurt or No Threatened By a Person Tobacco & Substance use: Smoking Status Former smoker Substance Use Type does not use Comment: Patient's daughter is the primary personnel officer. Usually independent at baseline. Meds Home Medications and Allergies Home Medications Medication Instructions Recorded Confirmed Type diltiazem HCl 360 mg 360 mg PO DAILY #90 caps 10/09/21 03/10/22 Rx capsule,extended release 24 hr Allergies Allergy/AdvReac Type Severity Reaction Status Date / Time aspirin [ASPIRIN] Allergy Mild SEVERE Verified 07/23/21 13:44 ILLNESS ON PERCODAN codeine [CODEINE] Allergy Mild HEADACHE Verified 07/23/21 13:44 oxycodone [OXYCODONE] Allergy Mild SEVERE Verified 07/23/21 13:44 ILLNESS FROM PERCODAN UNABLE TO TAKE LARGE PILLS Allergy Unknown Uncoded 07/23/21 13:44 Review of Systems Review of Systems Narrative: All other systems reviewed, negative other than as mentioned in HPI. No fevers no chills. Exam Vital Signs (past 8 hours): - 03/09/22 23:37 03/10/22 02:09 03/10/22 02:59 Temperature 97.7 F Pulse Rate 67 60 70 Respiratory Rate 16 16 14 Blood Pressure 157/89 H 142/80 H 145/91 H Pulse Oximetry 97 97 97 Oxygen Delivery Method Room Air Room Air Nasal Cannula Oxygen Flow Rate 3 03/10/22 03:45 Temperature 97.6 F Pulse Rate 76 Respiratory Rate 18 Blood Pressure 101/71 Pulse Oximetry 98 Oxygen Delivery Method Oxygen Flow Rate 2 Oxygen Delivery Method Nasal Cannula Oxygen Flow Rate 2 Narrative Exam Narrative: Patient was in mild distress because of the pain, now looks comfortable. Patient is emaciated, poorly nourished, cachectic, lying in the bed, unable to move her right lower extremity because of the pain and fracture. Her right upper extremity is in the cast. Loss of significant muscle mass. Generalized weakness. Heart exam positive for irregular heart rate, potential systolic murmur, unclear. Constitutional, HEENT, eyes, neck, chest, respiratory, cardiovascular, GI, skin, neuro, extremities, psych exam done, negative other than as mentioned above. Objective Labs Result Diagrams: 03/10/22 02:03 03/10/22 02:03 Labs: Laboratory Results - last 24 hr 03/10/22 03/10/22 03/10/22 01:45 02:03 02:03 WBC 12.7 H RBC 4.21 Hgb 12.4 Hct 36.0 MCV 85.6 MCH 29.4 MCHC 34.3 RDW 14.2 Plt Count 185 Neut % (Auto) 91.0 H Lymph % (Auto) 5.5 L Bartholomew % (Auto) 3.2 Eos % (Auto) 0.0 L Baso % (Auto) 0.3 Neut # (Auto) 08139 H Lymph # (Auto) 700 L Bartholomew # (Auto) 400 Eos # (Auto) 0 Baso # (Auto) 0 PT 14.9 H INR 1.3 Sodium Potassium Chloride Carbon Dioxide BUN Creatinine Estimated GFR BUN/Creatinine Ratio Glucose Calcium Total Bilirubin AST ALT Alkaline Phosphatase Total Protein Albumin Globulin Albumin/Globulin Ratio SARS-CoV-2 (PCR) Negative 03/10/22 02:03 WBC RBC Hgb Hct MCV MCH MCHC RDW Plt Count Neut % (Auto) Lymph % (Auto) Bartholomew % (Auto) Eos % (Auto) Baso % (Auto) Neut # (Auto) Lymph # (Auto) Bartholomew # (Auto) Eos # (Auto) Baso # (Auto) PT INR Sodium 143 Potassium 4.6 Chloride 106 Carbon Dioxide 26 BUN 27 H Creatinine 1.21 H Estimated GFR 48 L BUN/Creatinine Ratio 22.3 H Glucose 102 Calcium 9.8 Total Bilirubin 0.9 AST 51 H ALT 30 Alkaline Phosphatase 66 Total Protein 7.9 Albumin 4.5 Globulin 3.4 Albumin/Globulin Ratio 1.3 SARS-CoV-2 (PCR) Assessment & Plan Assessment and plan (1) Closed fracture of right hip: Status: Acute (2) 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 No further testing needed. EKG pending. With patient significant cardiac history, poor nutritional status, I expect the patient to stay more than 2 midnights hence inpatient status admission. Orthopedics for further recommendations. Appropriate pain control. Cautioned with the pain medication. Unclear why the patient is on Cardizem, whether she is taking or not, blood pressures are borderline, we will hold blood pressure medication at this time. Consider beta maik as needed if patient's blood pressure not controlled. History of hypertension, cardiomegaly, left ventricular hypertrophy, aortic valve calcification -patient had a cardiology evaluation July, no specific treatment recommended at this time. Continue to monitor blood pressures while the patient in the hospital. Severe protein calorie malnutrition -we will get speech therapy given history of dysphagia to advance the diet and also teamcenter solution architect during this hospitalization. SCDs for DVT prophylaxis at this time, consider chemical prophylaxis based on orthopedic recommendations. PPI for GI prophylaxis. Patient is full code. Overall prognosis is guarded. I explained the high-risk situation to patient and also daughter on the phone. We will continue to monitor the patient closely. Time Spent With Patient Critical Care time: I spent a total of [] minutes of critical care time on this patient's care today; this time is exclusive of procedural time.
[2022-03-10] MEDS: DEXTROSE 5%-0.9% NS 1,000 ML 100 ML IV ×2 (05:43→15:44)
--- NOTE | 2022-03-10 07:42 | PM.CN ---
History of Present Illness Consult details Date Patient Seen: 03/10/22 Time Patient Seen: 07:43 Chief complaint: GLF/rt wrist&hip pain Reason for consult: right fem neck fx, r wrist fx Requesting provider: Roger Ledezma Narrative: 71 F BMI 19.3 with hx dyshagia, wt loss and osteoporotic fxs, fell and had r wrist and r hip pain. communicates mostly by writing. Ok works at . c/o R hip and R wrist pain. had wt loss work up outpt recently negative for malignancy. no f/c/n/v. remot hx L wrist fx and L CRPP fem neck [facility] 2011 Meds Home Medications and Allergies Home Medications Medication Instructions Recorded Confirmed Type diltiazem HCl 360 mg 360 mg PO DAILY #90 caps 10/09/21 03/10/22 Rx capsule,extended release 24 hr Allergies Allergy/AdvReac Type Severity Reaction Status Date / Time aspirin [ASPIRIN] Allergy Mild SEVERE Verified 07/23/21 13:44 ILLNESS ON PERCODAN codeine [CODEINE] Allergy Mild HEADACHE Verified 07/23/21 13:44 oxycodone [OXYCODONE] Allergy Mild SEVERE Verified 07/23/21 13:44 ILLNESS FROM PERCODAN UNABLE TO TAKE LARGE PILLS Allergy Unknown Uncoded 07/23/21 13:44 Review of Systems Review of Systems Narrative: wt loss, dysphagia, difficult speaking. no sob, cp, n, v Exam Vital Signs (past 8 hours): - 03/10/22 02:09 03/10/22 02:59 03/10/22 03:45 Temperature 97.6 F Pulse Rate 60 70 76 Respiratory Rate 16 14 18 Blood Pressure 142/80 H 145/91 H 101/71 Pulse Oximetry 97 97 98 Oxygen Delivery Method Room Air Nasal Cannula Oxygen Flow Rate 3 2 Oxygen Delivery Method Nasal Cannula Oxygen Flow Rate 2 Narrative Exam Narrative: alert oriented HEENT NCAT REsp: NC lungs clear CV: RRR : lyles RUE: voalr wrist splint, demonstrates finger ROM, brisk cap refill, full elbow ROM R LE: ttp log roll, grossle nL alignment. limit s/M exam secondary to known femral neck fx. 5/5 DF/PF, calf soft SCDS in place healed incision L hip Objective Imaging ap pelivs lat r hip: My impression: valgus femoral neck fx R , 3 screws L fem neck r wrist fracture: My impression: minimal dorsal impacted dR kenny, extra articular Labs Result Diagrams: 03/10/22 02:03 03/10/22 02:03 Labs: Laboratory Results - last 24 hr 03/10/22 03/10/22 03/10/22 01:45 02:03 02:03 WBC 12.7 H RBC 4.21 Hgb 12.4 Hct 36.0 MCV 85.6 MCH 29.4 MCHC 34.3 RDW 14.2 Plt Count 185 Neut % (Auto) 91.0 H Lymph % (Auto) 5.5 L Beckham % (Auto) 3.2 Eos % (Auto) 0.0 L Baso % (Auto) 0.3 Neut # (Auto) 64636 H Lymph # (Auto) 700 L Beckham # (Auto) 400 Eos # (Auto) 0 Baso # (Auto) 0 PT 14.9 H INR 1.3 Sodium Potassium Chloride Carbon Dioxide BUN Creatinine Estimated GFR BUN/Creatinine Ratio Glucose Calcium Total Bilirubin AST ALT Alkaline Phosphatase Total Protein Albumin Globulin Albumin/Globulin Ratio SARS-CoV-2 (PCR) Negative 03/10/22 02:03 WBC RBC Hgb Hct MCV MCH MCHC RDW Plt Count Neut % (Auto) Lymph % (Auto) Beckham % (Auto) Eos % (Auto) Baso % (Auto) Neut # (Auto) Lymph # (Auto) Beckham # (Auto) Eos # (Auto) Baso # (Auto) PT INR Sodium 143 Potassium 4.6 Chloride 106 Carbon Dioxide 26 BUN 27 H Creatinine 1.21 H Estimated GFR 48 L BUN/Creatinine Ratio 22.3 H Glucose 102 Calcium 9.8 Total Bilirubin 0.9 AST 51 H ALT 30 Alkaline Phosphatase 66 Total Protein 7.9 Albumin 4.5 Globulin 3.4 Albumin/Globulin Ratio 1.3 SARS-CoV-2 (PCR) [facility] Medical History 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 Essential hypertension Hearing problem Medicare annual wellness visit, subsequent Osteoporosis Respiratory infection Seasonal allergies Surgical History Anesthesia Femur fracture (~2011) History of tonsillectomy (~1969) Status post cholecystectomy (~1983) Status post colonoscopy (~2008) Wrist fracture (~2011) Family History Brother Age: 68 Diabetes mellitus Heart disease Grandfather Stroke Mother Osteoporosis Hypertension Social History household members: children Tobacco & Substance Use Smoking Status: Former smoker alcohol intake: never Assessment & Plan Assessment and plan (1) Closed fracture of right hip: Status: Acute Plan: R femoral neck fracture, displaced. recommend hemiarthroplasty to allow immediate WB, mobility. will work on OR timing-not available today - plan r hemiarthroplasty with tomorrow TH- about 6pm (2) Distal radial fracture: Status: Acute Plan: minimal impaction extra artic R DR cox, NONop - volar splint and can convert to short arm cast or velcro wrsit splint when able in clinic. may WB through forearm. (3) Osteoporotic hip fracture: Status: Acute (4) Malnutrition: Status: Acute Assessment & Plan narrative: see above. pt with R hip fx - indicated for surgery to allow mobilization and reduce morbiditiy/mortality from prolonged bed rest- osteoporotic hip fracture, co morbid malnutrition COVID-19 COVID-19 status: Negative Time Spent With Patient Time with patient: less than 30 minutes Critical Care time: I spent a total of [] minutes of critical care time on this patient's care today; this time is exclusive of procedural time.
--- NOTE | 2022-03-10 09:27 | CM.DANOTE ---
Addendum entered by DONTA Louis 03/10/22 13:35: ADD: SW attempted to meet with pt two more times but once ST was bedside and once pt sleeping very soundly finally. Per RN, pt gave approval for staff to update and talk to her Dtr Vanessa. SW called Dtr Vanessa (who works in pt accounts downstairs [phone]) and explained role and Dtr confirms that pt now lives alone and no other supportive services in place at this time. Pt's son used to live with her in [place] and assist but he moved out of state about a year or so ago and they have been attempting to talk pt into selling her home and moving closer to family in [facility] but pt has been resistant to that. Dtr does not think pt likely will qualify for Medicaid at this time as she owns her home and gets about $27,000 a year with skilled nursing and benefits. Dtr aware that pt will likely need assist at home in the near future. Dtr thinks pt has used HH before when she had a leg fx but this was 10 years ago and pt had son staying with her and was able to d/c home. Dtr anticipates that pt will likely need SNF and denies that pt has any SNF hx that she knows of. SW provided the SNF Choice list via phone and recommended she review the Medicare.gov website. Dtr feels preference would likely be SNF in [facility] but Dtr states that [place] would work as well. SW made initial SNF referrals to [facility], [facility], and [facility] although pt still needs surgery and PT/OT. Dtr also states they have had discussions with pt regarding DPOA pwk since May but states we have all just dropped the ball. Dtr plans to follow up with pt and review the pwk with pt towards getting this completed. SW left a copy of SNF Choice list, DPOA pwk, [employer] [facility] [employer]/TS pwk to review, and Senior Resource Guidebook in room as Dtr works from [phone] and will come by the room and grab today to review. Per RN, pt likely to have surgery with Ortho tomorrow 03/11/22 around 1800. Plan: SW to follow closely for hip surgery tomorrow afternoon/evening and then eventual PT eval towards likely need of SNF at d/c. PASRR needed if SNF. DONTA Louis Original Note: Patient is a 71 yo female who was admitted on 03/10/22 for GLF/Fx. Pt has MCR and BX FED for insurance and her PCP is Dr. Yves Liu. EMR was reviewed. Per MD, pt with a hx of dysphagia and difficulty with verbal communication and weight loss over the past year due to swallow issues. Pt with hip fx due to GLF and wrist injury. Ortho Consult recommending surgery but per RN may not have an opening in OR until tomorrow 03/11/22. SW attempted to meet bedside with pt and RN but pt feeling very nauseated and drowsy and unable to participate in discussion at this time but confirms Dtr Vanessa was bedside this morning and will be back again sometime later today. Hydro Excavation Operator consult ordered due to pt's ongoing severe calorie malnutrition. ST ordered due to pt's swallow issues/dysphagia. Plan: SW to follow closely for Dtr to be bedside for better discharge planning assessment and pt likely could benefit from SNF at d/c pending surgical intervention and PT/OT eval. DONTA Louis Discharge Planning/Care Management CM Discharge Assessment Start: 03/10/22 09:25 Freq: Status: Active Protocol: Document 03/10/22 09:25 (Rec: 03/10/22 09:27 [id number]) Discharge Planning Assessment Assigned De Icer Kit Assembler DONTA Dan DPOA/Assigned Designee Name Dtr Vanessa Rao Contact Information [phone] Advance Directives? No Advance Directives on File No History Provided By Patient,Family Member,Medical Record Has Patient been admitted in last 30 No days? Prior Living Arrangements House Household Members children Type of transporation used prior to Relies on Others admit Independent with ADL's No Is patient alert and oriented? Yes Needs Assistance With Meal Prep,Managing Medications ,Home Chores / Shopping Caregiver for Another No Patient/Family Preference Long-Term Facility Comment To be determined, likely SNF pending PT/OT post surgery Barriers to Discharge No Discharge Plan Long-Term Facility Community Services Physical Therapy,Occupational Therapy Transportation Arrangement Pt likely will need SNF at d/c pending surgery and PT/OT eval vs home with HH and family assist Additional Comment Pending PT/OT eval after surgery Whiteboard Updated in Patient Room with Yes name and ext. # of De Icer Kit Assembler Review Status In Process Please Provide Date Initial DC 03/10/22 Assessment Was Performed Next Review Type Continued Stay Review
--- NOTE | 2022-03-10 10:45 | SLP.IPNOTE ---
Order received. Spoke with nursing prior to seeing pt. She had been nauseated earlier. Currently on a pureed/thin liquid diet. Pt was asleep when I attempted to see her. Will try again later today.
--- NOTE | 2022-03-10 11:23 | DIET.CONS ---
Dietary Consultation Note Admission Date: 03/10/2022 02:32 Assessment: 71y aphasic F admitted after GLF resulting in osteoporosis related broken arm and hip referred to nutrition for severe malnutrition (BMI 16.7, MNA 6). RD spoke c pts daughter, Vanessa via phone. Pt lives alone, up until recently her son lived with her. Pt is aphasic and uses R hand to communicate using white board (this is the arm she broke today). Pt with severe dysphagia, was scheduled for swallow study at [facility] today but instead was admitted after GLF. Pt with chronic malnutrition at baseline but daughter reports increased weight loss recently and is being worked up by neurology for difficulty moving legs and lower jaw. Pt was hospitalized in Jun 02 for aspiration pneumonia- dietitian gave high pro/high kcal plan to family to fortify pts diet. Pt dislikes ONS Ensure-it gives her gas, so family has been providing Premier Protein shakes which do not support pts need for a high kcal formula choice as they are high pro/low kcal bariatric formula. Nutrition Focused Physical Exam shows severe muscle and fat wasting globally with prominent bony landmarks under skin. Pts sternum outline completely visible under skin. Pt expressing nausea this morning and did not eat dysphagia puree breakfast. Speech therapy unable to complete bedside exam as pt was too nauseated, unclear if pt will be safe for evaluation as is unable to sit at 90 degrees due to hip fx. Pt may benefit from artificial nutrition in form of PEG tube if within care plan wishes if pt unable to safely meet nutrition needs via modified PO intake. Pt would benefit from increased care in home or alternate living facility to support nutrition status as pt lives alone. Ht: 162.5 cm Wt: 44 kg (81% IBW) BMI: 16.7 (severe) UBW: 48-50kg MNA: 6 Walt Score: 17 Diet: 03/10/22 04:57 NPO Diet Diet Modifications: NPO Type: NPO except for Meds 03/10/22 Breakfast Dysphagia Diet Diet Modifications: Speech eval has been ordered. Has no teeth May Advance Diet as Tolerated: No Safety Tray needed?: No Liquid consistency: Normal/Thin Food texture: Dysphagia Pureed Labs: RBC 4.21 X10^6/uL (4.0-5.2) 03/10/22 02:03 Hgb 12.4 g/dL (12.0-16.0) 03/10/22 02:03 Hct 36.0 % (36-46) 03/10/22 02:03 Creatinine 1.21 mg/dL (0.52-1.04) H 03/10/22 02:03 Nutrition Diagnosis: Severe Acute on Chronic Protein Calorie Malnutrition r/t nausea, difficulty eating aeb BMI 16.7 (severe), MNA 6 (malnourished), NPFE shows severe muscle and fat wasting globally, pt supplementing with inappropriate low kcal ONS at home, pt lives alone, is aphasic with dysphagia. -The patient is at much higher risk for medical and surgical complications because of his malnutrition. This increases the difficulty and complexity of medical and surgical interventions and increases the chances of poor outcomes such as morbidity and mortality. Interventions: 1. Awaiting speech therapy reccs on safe diet/fluid texture at which point PO feeding plan vs artificial nutrition feeding plan can be formulated. EER: 1540kcals (35kcal/kg per PCM), 66g PRO (1.5g/kg per PCM) Monitoring/Evaluations: following daily Electronically Signed by: Estefanía Steve 03/10/22 11:23 Clinical Dietitian [address] [address]
--- NOTE | 2022-03-10 14:16 | SLP.IPNOTE ---
Spoke with pt's daughter, Vanessa Rao, on the phone ([phone]) re: etiology of pt's difficulty with speech/swallowing. Vanessa reported that pt has been seeing Dr Sim, Neurologist in [facility] for the past 1-1.5 years on determining cause. According to daughter, she had an MRI that as reported to be negative for CVA. She recently started to have blood tests started (possible Cancer?) According to the daughter, there has been no clear diagnosis to this date that has been determined. Daughter works at at [phone]
--- NOTE | 2022-03-10 14:21 | ST.IPCSEOM ---
Visit Care Team Role Provider Type Yves Liu DO Primary Care Provider Physician Specialty: Family Practice Address: [address] [place] [address], [id number] Email: Roger Ledezma DO Emergency Provider Physician Referring Provider Specialty: Emergency Medicine Address: [address] [place] [address], [id number] Email: [email or web address] Conrad Graham MD Admit Provider Physician Attending Provider Specialty: Internal Medicine Address: [address] [place] [address], [id number] Email: [email or web address] Current Diagnoses Unspecified protein-calorie malnutrition (03/10/22) Other developmental disorders of speech and language (03/10/22) Essential (primary) hypertension (03/10/22) Nonrheumatic aortic valve disorder, unspecified (03/10/22) Cardiomegaly (03/10/22) Age-related osteoporosis with current pathological fracture, unspecified femur, initial encounter for fracture (03/10/22) Dysphagia, unspecified (03/10/22) Unspecified fracture of the lower end of unspecified radius, initial encounter for closed fracture (03/10/22) Fracture of unspecified part of neck of right femur, initial encounter for closed fracture (03/10/22) Past Medical History (Last Reviewed 03/10/22 @ 12:44 by Nicolasa Rowell MD) 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 (Medical) Essential hypertension (Medical) Hearing problem (Medical) Hearing fine/ringing in ears Medicare annual wellness visit, subsequent (Medical) Osteoporosis (Medical) Respiratory infection (Medical) Seasonal allergies (Medical) Speech-Language Pathology Swallow Evaluation CLINICAL PROJECT COORDINATOR Clinical Swallow Evaluation Start: 03/10/22 14:02 Freq: Status: Active Protocol: Document 03/10/22 14:02 KETTY (Rec: 03/10/22 14:21 ZS [id number]) Clinical Swallow Evaluation Session Time Visit Start Time 12:00 Visit Stop Time 12:30 Total Visit Minutes 30 Visit Information Visit Number 1 Setting Assessment Location Acute Care Visit Type Note Type Initial evaluation Next Note Type Next Note Type Re-evaluation Patient Information Identification Type Name History Per H&P: 71-year-old female former smoker with history of speech deficit, dysphagia, aortic valve calcification and cardiomegaly presents by EMS for evaluation of a ground level fall which resulted in right wrist and hip injury.? She denies any prodromal symptoms such as dizziness, weakness or lightheadedness and states that she had fallen earlier today suffering injuries as stated.? Both wrist and hip have increased pain with range of motion and palpation.? She denies any head neck or back pain.? She denies any chest pain or shortness of breath.? She is had no nausea, vomiting or diarrhea.I called patient daughter Ms. Rao who works here at [facility], confirms more details regarding patient's overall status of health. Patient is been having weight loss for almost 1 year, attributed to poor eating and poor swallowing efforts. She had an extensive malignancy workup done as an outpatient, negative. She does have speech therapy appointment today for swallow evaluation, unclear etiology are no specific diagnosis given at this time. Patient communicates mostly by writing on the white board. Patient was in pain when I saw her on the floor, improved with Dilaudid. After pain medication, she looks more comfortable. It is unclear from the notes are the history whether patient is on diltiazem for irregular heart rate versus just hypotension? Per NSG, pt's neurologist referred her for a MBS at [facility], which was scheduled for today. Pt to have hip surgery tomorrow and will be NPO this evening following dinner, per NSG. Subjective Observations Pt was seated upright in bed with midday meal in front of her. She was eating with her left hand and assisting with her right hand (in a cast). Pt was nonverbal and observed to write in the air or use a whiteboard to communicate in addition to gestures and vocalizations. Reported by Patient Other Symptoms History of aspiration or pneumonia Comment Pt was referred for MBS from neurologist. Current Diet Pureed,Thin liquids Baseline Feeding Method Needs some assistance Objective Assessment Mental Status Alert,Responsive,Cooperative Dentition Missing teeth Comment Informal oral motor assessment completed as pt was focused on eating when CLINICAL PROJECT COORDINATOR arrived and did not participate in oral motor assessment. Anterior loss of bolus was observed with thin liquids, though this may be related to incoordination of left hand, as several spills were observed in plate to mouth transportation. Pt is endentulous and chewing/ mashing was minimal and no rotary motion was observed. Pt observed to open and close mouth appropriately for PO intake. Residue observed in oral cavity following swallow. Unclear why pt is not speaking at this time as oral structures appeared WFL for the purposes of eating and speaking. Food and Liquid Trials Position During Assessment Upright (90 degrees),In bed Liquids Trialed Thin,Pudding Solids Trialed Puree Administration Type Tea spoon,Cup single sip,Self- feeding,Needs some assistance Oral Phase Comments Pt exhibited anterior loss of bolus and inefficient mastication due to edentulous status and incoordination of plate to mouth movement. Possibly mild labial weakness contributing to containment of thin liquids. Mashing/ munching motion observed rather than rotary chew, which is likely related to pt's edentulous status as well. Pharyngeal Phase Comments No overt signs or symptoms of aspiration observed, though cannot rule out silent aspiration without instrumental assessment. Pt was referred for MBS by neurologist and has a history of aspiration pneumonia. No wet/gurgly vocal quality observed, though pt vocalized minimally and sounds consisted primarily of grunting. Findings Comment Pt presents with oral dysphagia characterized by mastication inefficiency secondary to edentulous status. No overt signs or symptoms of aspiration observed, though pt has a history of aspiration pneumonia, dysphagia, and was referred for a MBS by her neurologist. Unable to rule out silent aspiration with clinical swallow assessment. Recommend continued diet of pureed solids and thin liquids until pt is NPO for surgery this evening. Following surgery, it is recommended pt participate in re-evaluation of swallow mechanism including a MBS. Recommend completion of formal oral motor assessment to determine if structural deficits are impacting swallow/speech. Unclear why pt is not speaking at this time and continued assessment is recommended to monitor and treat. Impact on Safety and Functioning Risk for aspiration Recommendations Instrumental Assessment Yes Swallowing Treatment Yes Recommended Solids Puree Recommended Liquids Thin Safety Precautions/Swallowing Feed only when alert,Reduce Recommendations distractions,Remain upright ( 90 degrees) during all oral intake,Upright position at least 30 minutes after meals, Small bites and sips when eating,Slow rate; swallow between bites,Set-up assistance,Check for pocketing Medication Recommendations Crushed in Carrier Education Patient/Caregiver Education Described results of evaluation,Patient expressed understanding of evaluation, Patient expressed agreement with goals & treatment plans, Patient expressed understanding of safety precautions,Patient expressed understanding of feeding recommendations,Patient requires further education/ training Goals Short-term Goals 1. Pt will participate in OME to determine structural and functional integrity of oral mechanism. 2. Pt will participate in MBS to inform POC and diet recommendations. Long-term Goals Pt will safely tolerate least restrictive diet to meet her nutritional and hydration needs.
[2022-03-10] MEDS: DILTIAZEM 360 MG 1 EACH PO (16:28)
[2022-03-10] MEDS: SODIUM CHLORIDE 0.9% 500 ML IV (19:47)
[2022-03-11] VITALS (17 sets, daily range): BP systolic 107–134; BP diastolic 64–92; PULSE 51–109; RESP 12–19; TEMP 35.9–37.1; O2SAT 90–95
[2022-03-11] MEDS: DEXTROSE 5%-0.9% NS 1,000 ML 100 ML IV ×2 (02:58→13:43)
[2022-03-11 06:02] LABS: Add Manual Diff / Slide Review NO; Basophils Absolute Auto 0 /uL (0-100); Basophils Percent Auto 0.3 % (0-2); Eosinophils Absolute Auto 0 /uL (0-450); Eosinophils Percent Auto 0.4 % (2-4); Hematocrit 32.5 % (36-46); Hemoglobin 11.2 g/dL (12.0-16.0); Lymphocytes Absolute Auto 700 /uL (1100-4500); Lymphocytes Percent Auto 8.1 % (25-40); Mean Corpuscular HGB Conc 34.4 % (30-36); Mean Corpuscular Hemoglobin 30.2 PG (26-34); Mean Corpuscular Volume 87.6 fL (80-100); Monocytes Absolute Auto 300 /uL (0-900); Monocytes Percent Auto 3.9 % (3-14); Neutrophils Absolute Auto 7400 /uL (1500-7000); Neutrophils Percent Auto 87.3 % (50-75); Platelet Count 143 X10^3/uL (150-400); Red Blood Cell Count 3.71 X10^6/uL (4.0-5.2); Red Cell Distribution Width 14.5 % (11.6-14.8); White Blood Cell Count 8.5 X10^3/uL (4.5-11.0)
[2022-03-11 06:17] LABS: Alanine Aminotransferase 25 IU/L (<35); Albumin 3.6 g/dL (3.5-5.0); Albumin Globulin Ratio 1.2 (1.0-2.8); Alkaline Phosphatase 53 U/L (38-126); Aspartate Aminotransferase 33 IU/L (14-36); BUN Creatinine Ratio 23.4 (6-22); Bilirubin Total 0.6 mg/dL (0.2-1.3); Blood Urea Nitrogen 26 mg/dL (7-17); Calcium 8.4 mg/dL (8.4-10.2); Carbon Dioxide 26 mmol/L (22-32); Chloride 114 mmol/L (98-107); Estimated Glomerular Filt Rate 53 mL/min (>60); Globulin 3.1 g/dL (1.7-4.1); Glucose 123 mg/dL (80-110); HEMOLYSIS < 15 (0-50); Potassium 4.4 mmol/L (3.4-5.1); Sodium 144 mmol/L (137-145); Total Protein 6.7 g/dL (6.3-8.2)
[2022-03-11] MEDS: HYDROMORPHONE 0.5 MG INJ IV (06:20)
--- NOTE | 2022-03-11 07:45 | PM.PREOP ---
Pre-operative Note COVID-19 COVID-19 status: Negative Interval Note History & Physical reviewed/Exam performed by Physician: Yes Changes to H&P: No
[2022-03-11] MEDS: DILTIAZEM 360 MG 1 EACH PO (09:43)
[2022-03-11] MEDS: HYDROMORPHONE 1 MG INJ IV ×2 (09:43→13:44)
--- NOTE | 2022-03-11 12:49 | SLP.IPNOTE ---
Pt is NPO today pending surgery. No services
--- NOTE | 2022-03-11 15:06 | DIET.CONS2 ---
Dietary Inpatient Consultation Note Admission Date: 03/10/2022 02:32 Malnourished pt awaiting surgery with NPO status since last evening. RD prepared nourishment box with pts ID sticker in [place]- puree/thin textures in case she is hungry and able to eat after surgery tonight when kitchen is closed. Items include chocolate pudding, cheesecake mousse, whole milk and chocolate milk as pts daughter states she likes sweet items. Items high in protein and kcals. Pt RN and fire extinguisher charger aware of plan. Diet: 03/11/22 00:01 NPO Diet Diet Modifications: May Advance Diet as Tolerated: No Safety Tray needed?: No NPO Type: NPO except for Meds Nutrition Percent Meal Consumed 0% 03/11/22 13:46 General Nutrition Dietary Nutrition Intervention Start: 03/10/22 09:38 Freq: Status: Active Protocol: Document 03/10/22 09:38 AP (Rec: 03/10/22 09:40 AP [id number]) Nutritional Calculations Patient Data Protocol: NUTR.AMPUT Height 162.5 cm Weight 44 kg Weight Calculations Protocol: NUTR.WC [place] Body Weight (lbs) 119.90 [place] Body Weight (kgs) 54.39 Percent of [place] Body Weight (%) 81 Adjusted Body Weight (lbs) 114.18 Adjusted Body Weight (kgs) 51.79 BMI Protocol: NUTR.BMI Body Mass Index (BMI) 16.6 Body Mass Index (BMI) Classification Underweight BEE - [place] Equation Protocol: NUTR.BEE Basal Energy Expenditure (BEE) (kcal) 1049.18 RMR - [place] Equation Protocol: NUTR.RMR Resting Metabolic Rate (kcal) 949.79 Calculated Activity Level Sedentary Calories Needed to Maintain Weight 1139.75 Estimated Protein Requirements Based on Protein Factor Protocol: NUTR.EPR Protein Factor (grams/kg/day) 1.5 Estimated Protein Needs (grams/day) 66.0 Estimated Protein Requirements Based on Age and Weight Protocol: NUTR.EPR1 Estimated Protein Needs (grams/day) 35.2 Fluid Requirements - Method 2 Fluid Requirements (Method 2) (mL/day) 1860.00 Fluid Requirements - Method 4 Fluid Requirements (Method 4) (mL/day) 1860.00 Fluid Requirements - Method 5 Fluid Requirements (Method 5) (mL/day) 2100.00 Electronically Signed by: Estefanía Steve 03/11/22 15:06 Clinical Dietitian [address] [address]
--- NOTE | 2022-03-11 15:25 | P.PN_ITS ---
Subjective Subjective Date Patient Seen: 03/11/22 Interval history: Pain is controlled at rest, mild pain with movement. Awaiting surgery later today. Exam Vital Signs (past 8 hours): - 03/11/22 08:00 03/11/22 12:00 Temperature 98.1 F 97.6 F Pulse Rate 51 L 63 Respiratory Rate 15 17 Blood Pressure 113/68 109/65 Pulse Oximetry 93 90 L Oxygen Flow Rate 0 0 Oxygen Delivery Method Room Air,Nasal Cannula Oxygen Flow Rate 0 Narrative Exam Narrative: General:? Patient is well developed, appears poorly nourished, in no distress at this time. HEENT:? Normocephalic, atraumatic, extraocular muscles intact, oral pharynx is clear and mucous membranes are moist. Neck: supple and symmetric, trachea is midline, no cervical adenopathy. Negative for JVD Chest:? Normal AP diameter and contour without kyphoscoliosis, no tachypnea, equal chest rise bilaterally. Lungs:? CTA b/l no wheezing rhonchi or rales. Cardio:?RRR no m/r/g. Abdomen: S NT ND. Extremities: No edema or joint effusions. No cyanosis or clubbing. R arm in cast. Skin:? Pale,? Warm to touch,dry and intact without rashes, ulcerations or petechiae.? Neuro:? Alert and orientated x3,? sensation to touch intact in all extremities, no gross deficits noted of cranial nerves. Psych:? Patient has a well-kept appearance, appropriate affect, mental status attitude thought context and judgment are appropriate for age. Objective Labs Result Diagrams: 03/11/22 05:32 03/11/22 05:32 Labs: Laboratory Results - last 24 hr 03/11/22 03/11/22 05:32 05:32 WBC 8.5 RBC 3.71 L Hgb 11.2 L Hct 32.5 L MCV 87.6 MCH 30.2 MCHC 34.4 RDW 14.5 Plt Count 143 L Neut % (Auto) 87.3 H Lymph % (Auto) 8.1 L Bartholomew % (Auto) 3.9 Eos % (Auto) 0.4 L Baso % (Auto) 0.3 Neut # (Auto) 7400 H Lymph # (Auto) 700 L Bartholomew # (Auto) 300 Eos # (Auto) 0 Baso # (Auto) 0 Sodium 144 Potassium 4.4 Chloride 114 H Carbon Dioxide 26 BUN 26 H Creatinine 1.11 H Estimated GFR 53 L BUN/Creatinine Ratio 23.4 H Glucose 123 H Calcium 8.4 Total Bilirubin 0.6 AST 33 ALT 25 Alkaline Phosphatase 53 Total Protein 6.7 Albumin 3.6 Globulin 3.1 Albumin/Globulin Ratio 1.2 [facility] Medical History 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 Essential hypertension Hearing problem Medicare annual wellness visit, subsequent Osteoporosis Respiratory infection Seasonal allergies Surgical History Anesthesia Femur fracture (~2011) History of tonsillectomy (~1969) Status post cholecystectomy (~1983) Status post colonoscopy (~2008) Wrist fracture (~2011) Family History Brother Age: 68 Diabetes mellitus Heart disease Grandfather Stroke Mother Osteoporosis Hypertension Social History household members: children Smoking Status: Former smoker alcohol intake: never Assessment & Plan Assessment and plan (1) Closed fracture of right hip: Status: Acute (2) 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: Status: Acute (3) Dysphagia: Qualifiers: Dysphagia type: unspecified Qualified Code(s): R13.10 - Dysphagia, unspecified Status: Acute (4) LVH (left ventricular hypertrophy): Status: Acute (5) Essential hypertension: Status: Chronic (6) Aortic valve calcification: Status: Acute Assessment & Plan narrative: Closed pathologic right hip fracture secondary to fall -patient is high-risk, severe protein calorie malnutrition, - Orthopedics plans for operative interventions, patient is medically optimized at this time with diltiazem being held for now. Continue Appropriate pain control. Cautioned with the pain medication. History of hypertension, cardiomegaly, left ventricular hypertrophy, aortic valve calcification -patient had a cardiology evaluation July, no specific treatment recommended at this time. Continue to monitor blood pressures while the patient in the hospital. Severe protein calorie malnutrition -we will get speech therapy given history of dysphagia to advance the diet and also sales project coordinator during this hospitalization. SCDs for DVT prophylaxis at this time, consider chemical prophylaxis based on orthopedic recommendations. PPI for GI prophylaxis. Patient is full code Dispo. anticipate SNF after surgery, depending on PT / OT recommendations. COVID-19 COVID-19 status: Negative Time Spent With Patient Critical Care time: I spent a total of [] minutes of critical care time on this patient's care today; this time is exclusive of procedural time. Quality VTE Deep Vein Thrombosis/Pulmonary Embolism Present on Admission: No
--- NOTE | 2022-03-11 15:46 | CM.DPC ---
DCP Note Continued RESEARCH KENNEL SUPERVISOR receives call from [facility] and it is reported that they can accept patient upon medical clearance. RESEARCH KENNEL SUPERVISOR completes PASSR. RESEARCH KENNEL SUPERVISOR calls patient's daughter and reviews this with her, she endorses agreement to this SNF since she lives in [place]. RESEARCH KENNEL SUPERVISOR later receives call from September at [facility] who endorses she could accept patient on Tuesday03/14/22 but would like to know more about patient's d/c plan after SNF rehab with family. RESEARCH KENNEL SUPERVISOR calls patient's daughter and leaves VM regarding [facility] and asks about patient's plan after SNF rehabs. Plan: Patient to have surgery this evening, pending PT/OT eval. Family and patient to discuss SNF rehab preference ([facility] vs[facility]) upon medical clearance. Dara Conway, [employer]UR[employer] EXECUTIVE DIRECTOR
[2022-03-11] MEDS: LACTATED RINGERS 1,000 ML 84 ML IV (17:33)
--- NOTE | 2022-03-11 18:21 | PM.PREOP ---
Pre-operative Note Interval Note History & Physical reviewed/Exam performed by Physician: Yes Changes to H&P: No
--- NOTE | 2022-03-11 18:21 | PM.OP.1 ---
Operative Date/Time/Diagnoses Date of procedure: 03/11/22 Time of procedure: 18:30 Pre-op diagnosis: right femoral neck fracture Post-op diagnosis: same Procedure & Clinicians Procedure: Right hip unipolar Same procedure as scheduled: Yes Indications: This is a 71-year-old female with multiple medical problems including cachexia who fell and sustained a displaced right femoral neck fracture. She is brought the operating room for a cemented right hip unipolar. She also has a right distal radius fracture which is not displaced and plan is to manage conservatively. The procedure alternatives risks benefits and complications were discussed in detail. Surgeon: Krystal Smith Jewel Hole Finish Opener: Pippa Burr Anesthesia Type: General Operative Notes Findings: Very osteoporotic soft bone, displaced fracture, acceptable reduction, acceptable stability Closure Type: primary Specimen(s): none sent Prosthetic devices, grafts, tissues, transplants, or devices: and nephew size 13 cemented Synergy stem, size 47 femoral head, +0 neck Estimated Blood Loss (mL): 200 Blood products transfused: none Procedure in detail: The patient was seen in the pre-operative area, where the patient identified the right hip as the operative site and this was marked with my initials. The patient received pre-operative antibiotics and was taken to the operating room and placed on the operative table in the supine position after satisfactory anesthesia. A multimedia educational specialist out was performed. Patient was placed in the lateral decubitus position and all bony prominences were carefully padded and the arms were appropriately position. The right lower extremity was prepared from the ankle to the iliac crest with ChloroPrep in the usual fashion and draped through sterile drapes. The hip was approached through posterolateral approach. Dissection was carried out down through skin and subcutaneous tissues. The fascia was opened. Gelpi retractors were placed. A Charnley retractor was placed. A small amount of inflamed bursa was resected. The piriformis was identified and protected. The other short external rotators and capsule were carefully stripped from the posterior aspect of the femur. They were tagged and carefully retracted. The femoral neck was brought up and an osteotomy was made of the residual femoral neck approximately 1 fingerbreadth above the lesser trochanter. The head was removed without difficulty. It was carefully sized. The acetabulum was meticulously irrigated with normal saline. There were [mild] changes in the acetabulum. The acetabulum was carefully protected with an E tape. The canal was opened with a box cutting osteotome, followed by a T-handled reamer and a lateralizing reamer. The tapered reamers were then used, followed by sequential broaching. A trial head and neck were then placed and the hip relocated and checked for leg length and stability. The patient was stable in the position of sleep, of squatting, and could be put through a range of motion with 45 degrees internal rotation without dislocation. At 90 degrees flexion, internal rotation to 70? was possible before dislocation. This was felt to be satisfactory and the appropriate components were opened, and the trials were removed. The femoral canal was sized and a distal cement restrictor was placed. The bone was meticulously cleaned with pulse lavage. The canal was packed with vaginal packing with epinephrine. Antibiotics cement was mixed and carefully pressurized into the femoral canal. The femoral component was placed without difficulty. A repeat trial reduction showed good range of motion and stability. Patient had good range of motion and stability. The final head and neck were placed after carefully irrigating the wound. The capsulomuscular flap was then repaired to the greater trochanter though an awl hole using the tag sutures. The short external rotators were repaired with black braided nylon. A deep drain was placed and brought out anteriorly. The fascia cecilia was closed with interrupted Vicryl. The subcutaneous layer was closed with interrupted 3-0 Vicryl, and the skin with a running 3-0 V-Lock suture and surgical glue. An Aquacel Ag dressing was applied and the patient was taken to recovery having tolerated the procedure well. Complications: none Post-operative Condition: stable Disposition: Acute Care Plan for aftercare: The patient will be maintained on a standard hip replacement protocol with weight bearing as tolerated and posterior hip precautions. The patient will receive Aspirin and sequential compression devices for DVT prophylaxis. The patient will be discharged home when safe for the home environment.
[2022-03-11] MEDS: CEFAZOLIN 2 GM/100 ML PREMIX 100 ML IV (18:24)
[2022-03-11] MEDS: TRANEXAMIC ACID 1,000 MG in SODIUM CHLORIDE 0.9% 100 ML 200 MG IV (19:18)
--- NOTE | 2022-03-11 19:36 | SUR.OPER ---
Lateral on padded OR bed. Gel axillary roll. Arms secured on padded armboard with pillow supporting top arm. Padded hip positioner braces x4 - anterior and posterior chest and pelvis. Additional gel pad used anterior pelvis. Gel pad under bottom leg from knee to foot and secured with tape over sheet.
[2022-03-11] MEDS: BUPIVACAINE 0.25% (PF) 30 ML, EPINEPHrine 0.15 MG INJ (19:48)
[2022-03-11] MEDS: BUPIVACAINE LIPOSOME 266 MG/20 ML VIAL INJ (19:51)
[2022-03-11] MEDS: LACTATED RINGERS 1,000 ML 125 ML IV (22:27)
[2022-03-11] MEDS: HYDROMORPHONE 2 MG TABLET PO (22:39)
[2022-03-11] MEDS: ACETAMINOPHEN 325 MG TABLET 650 MG PO (23:17)
[2022-03-12] MEDS: CEFAZOLIN 2 GM/100 ML PREMIX 100 ML IV ×2 (01:38→10:59)
[2022-03-12 04:06] VITALS: BP 106/65; PULSE 108; RESP 16; TEMP 36.1
[2022-03-12 05:23] LABS: Hematocrit 33.5 % (36-46); Hemoglobin 11.3 g/dL (12.0-16.0)
[2022-03-12] MEDS: ACETAMINOPHEN 325 MG TABLET 650 MG PO (06:03)
[2022-03-12] MEDS: SODIUM CHLORIDE 0.9% 500 ML IV (06:28)
[2022-03-12 06:46] LABS: BUN Creatinine Ratio 28.2 (6-22); Blood Urea Nitrogen 29 mg/dL (7-17); Calcium 8.2 mg/dL (8.4-10.2); Carbon Dioxide 25 mmol/L (22-32); Chloride 113 mmol/L (98-107); Estimated Glomerular Filt Rate 58 mL/min (>60); Glucose 173 mg/dL (80-110); HEMOLYSIS < 15 (0-50); Potassium 5.1 mmol/L (3.4-5.1); Sodium 147 mmol/L (137-145)
--- NOTE | 2022-03-12 06:49 | PC.NURSE ---
Patient's urine output 150cc for shift. LR infusing at 125cc/hr. Dr Graham notified and orders received. NS bolus 500cc/hr infusing. Stat BMP drawn.
--- NOTE | 2022-03-12 07:36 | PC.NURSE ---
When patient came back from [facility] said they were having difficulty obtaining POX. We continued to have difficulty with obtaining the POX. RT checked with her monitor and it was 95% on room air.
[2022-03-12 08:10] VITALS: BP 109/68; TEMP 35.7
[2022-03-12] MEDS: DOCUSATE 100 MG CAPSULE PO ×2 (09:53→21:01)
[2022-03-12] MEDS: ASPIRIN EC 81 MG TABLET PO ×2 (09:53→21:01)
[2022-03-12] MEDS: dilTIAZem CD 180 MG CAP 360 MG PO (09:53)
[2022-03-12] MEDS: HYDROMORPHONE 2 MG TABLET PO (09:53)
--- NOTE | 2022-03-12 10:24 | ST.IPDYTX ---
Visit Care Team Role Provider Type Yves Liu DO Primary Care Provider Physician Specialty: Family Practice Address: [address] [place] [address] Email: Roger Ledezma DO Emergency Provider Physician Referring Provider Specialty: Emergency Medicine Address: [address] [place] [address] Email: [email or web address] Rakesh Fiore DO Attending Provider Physician Specialty: Internal Medicine Address: [address] [place] [address] Email: [email or web address] MD Admit Provider Physician Other Providers Specialty: Internal Medicine Address: [address] [place] [address] Email: [email or web address] Dysphagia Treatment HULL DRAFTER Dysphagia Treatment Start: 03/12/22 10:15 Freq: Status: Active Protocol: Document 03/12/22 10:15 KETTY (Rec: 03/12/22 10:24 KETTY [id number]) Dysphagia Treatment Session Time Visit Start Time 09:45 Visit Stop Time 10:05 Total Visit Minutes 20 Setting Assessment Location Acute Care Visit Type Note Type Treatment Note Next Note Type Next Note Type Treatment Note Patient Information Identification Type Name Subjective Observations Pt was seated semi-upright in bed and pills were provided crushed in carrier by NSG. NSG stated pt was given regular texture breakfast despite order for cream of wheat and regular textures were not tolerated given pt's lack of teeth. Treatment Liquids Trialed Thin Solids Trialed Puree Administration Type Tea Spoon Oral Strategies Upright at 90 degrees Pharyngeal Strategies Sitting Upright (90 deg),Chin Tuck,Small Bites and Sips Treatment Activities Observed pt as she took her pills crushed in carrier (x4 spoonfuls of applesauce) and x2 sips of coffee through open cup. Provided education regarding chin tuck and exercise for improved labial closure. Assessment Assessment of Improvement Pt was observed to cough while eating spoonful of applesauce with medications. Coughing continued after sip of coffee, which pt drank by tilting her head back. Head tilt back is likely secondary to impaired labial seal, as pt was observed to have anterior loss of bolus with head in neutral position. Discussed chin tuck and exercise for increased labial strength/closure, of which pt demonstrated understanding. Pt may be silently aspirating, though this cannot be ruled out without instrumental assessment. Per hospitalist, pt's dysphagia is ongoing and given she is 1 day post-op hip surgery, recommended waiting on MBS until next week. Recommend puree solids to accommodate pt's edentulous status and thin liquids. Diet Recommendations Recommendations Downgrade Diet Order Liquids Order Thin Diet Order Dysphagia Blenderized Medication Recommendations Crushed in Carrier Aspiration Precautions Recommended Precautions Upright at 90 Degrees,Small Bites/Sips,Chin Tuck Treatment Plan Placement Recommendation after Discharge Detention Facility[facility] Appropriate for Continued Therapy Yes Therapy Recommendations Puree textures and thin liquids until MBS can be completed. Labial closure exercises and chin tuck to decrease risk of aspiration with PO intake. Dysphagia Goals Pt will safely tolerate least restrictive diet to meet her nutrition and hydration needs.
--- NOTE | 2022-03-12 10:40 | PT.IIE ---
Current Diagnoses Unspecified protein-calorie malnutrition (03/10/22) Other developmental disorders of speech and language (03/10/22) Essential (primary) hypertension (03/10/22) Nonrheumatic aortic valve disorder, unspecified (03/10/22) Cardiomegaly (03/10/22) Age-related osteoporosis with current pathological fracture, unspecified femur, initial encounter for fracture (03/10/22) Dysphagia, unspecified (03/10/22) Unspecified fracture of the lower end of unspecified radius, initial encounter for closed fracture (03/10/22) Fracture of unspecified part of neck of right femur, initial encounter for closed fracture (03/10/22) Surgery Performed Operation Date: 03/11/22 17:30 Actual Procedures p Hip Hemiarthroplasty(Right) - Krystal Smith MD Surgical History (Last Reviewed 03/12/22 @ 12:41 by Pippa Burr PA-C) Anesthesia Femur fracture (~2011) History of tonsillectomy (~1969) Status post cholecystectomy (~1983) Status post colonoscopy (~2008) Wrist fracture (~2011) Medical History (Last Reviewed 03/12/22 @ 12:41 by CLAIRE StarrC) 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 Essential hypertension Hearing problem Medicare annual wellness visit, subsequent Osteoporosis Respiratory infection Seasonal allergies Physical Therapy Inpatient Evaluation/Re-Eval M1 PT/OT-IP Prior Functional Status Start: 03/12/22 12:53 Freq: NEEDED Status: Active Protocol: Document 03/12/22 10:40 AB (Rec: 03/12/22 13:13 AB [id number]) Medical Review Prior Functional Status Medical History Reviewed Yes Communication pt has aphasia and communicates by writing; able to answer question and follow instructions but requires repetitions Mobility and Gait pt stated that she is independent with all mobilities and ambulation without AD Social History Living Arrangements House Number of Floors (Floors) 3 or More Floors Number of Stairs To Enter/Railing? pt lives on a split level house: 7 steps with B rails ascending from the garage to get to main living area ; 7 steps B rails from the garage to go down to the basement/ laundry area Home Environment Standard Height Toilet,Walk in Shower,Built-In Shower Seat Home Equipment Straight Cane,Grab Bars Near Toilet,Grab Bars In Shower Additional Social History Comment has a caregiver that comes in to assist with house chores once a week for 2-3 hours M2 PT-IP Current Condition Start: 03/12/22 12:53 Freq: NEEDED Status: Active Protocol: Document 03/12/22 10:40 AB (Rec: 03/12/22 13:13 AB [id number]) Physical Therapy Current Condition Current Condition Evaluation Date 03/12/22 Treatment Diagnosis GLF; R hip hemiarthroplasty; R wrist fx; difficulty in walking Onset Date 03/10/22 M3 PT-IP Subjective Start: 03/12/22 12:53 Freq: NEEDED Status: Active Protocol: Document 03/12/22 10:40 AB (Rec: 03/12/22 13:13 AB [email or web address]) Subjective Physical Therapy Visit Type Type Initial Evaluation Visit Start Time 10:40 Visit Stop Time 11:32 Total Visit Minutes 52 Number of PUBLIC WORKS TECHNICIAN Visits 0 Physical Therapy Visit Comments Patient Comments agreeable to do PT Therapy Pain Assessment Pain Present Pain Present Denied Pain M4 PT-IP Mobility and Gait Start: 03/12/22 12:53 Freq: NEEDED Status: Active Protocol: Document 03/12/22 10:40 AB (Rec: 03/12/22 13:13 AB [id number]) PT-Bed Mobility Assessment Supine to Sit Supine to Sit Maximum Assistance,1 Person Assistance,2 Person Assistance Scooting Scooting to Edge of Bed Maximum Assistance PT-Transfer Assessment Sit to and From Stand Sit to and from Stand Maximum Assistance,2 Person Assistance,Use of Upper Extremities Equipment Transfer Assistive Device Gait Belt,Platform Walker Orthotic/Prosthetic Devices or Brace: Yes Transfers Transfer Destination Chair Transfer Technique Stand Step Pivot Transfer Ability Level of Assist Maximum Assistance,2 Person Assistance,Use of Upper Extremities Comments Mobility Comments Pt educated on posterior hip precautions and weight bearing restriction on RUE. BP in supine: 99/63. completed supine to sit max A x 1-2 and max cues with HOB elevated and use of bed rail. Able to sit on EOB min A and cues. max A for scooting to EOB. c/o slight dizziness. BP in sittin/69. completed sit to stand from EOB max A x 2 and max cues using PFW and standpivot transfer usign PFW max A x 2 and max cues. requires max cues with all tasks and for precautions. Pt tends to use RUE for pushing during scooting and instructed on NWB on R wrist. positioned pt on the chair. call light and table placed within reach. Gait Assessment Comments Gait Comments unable at this time PT-Balance Assessment Sitting Balance and Reactions Static Sitting Balance Ability Good Dynamic Sitting Balance Ability Fair Standing Balance and Reactions Static Standing Balance Ability Poor Dynamic Standing Balance Ability Poor Device Used PFW M5 PT-IP Objective Assessments Start: 03/12/22 12:53 Freq: NEEDED Status: Active Protocol: Document 03/12/22 10:40 AB (Rec: 03/12/22 13:13 AB [email or web address]) Orientation Orientation/Cognition Level of Alertness Alert Orientation Name Language Function Ability Expressive Aphasia Safety Awareness Decreased Safety Awareness Gross Range of Motion Lower Extremity ROM Assessment Bilaterally Impaired Strength Lower Extremity Strength Assessment Bilaterally Impaired Hip 3-/5 Knee 3+/5 Muscle Tone Muscle Tone WNL Yes M6 PT-IP Treatment Start: 03/12/22 12:53 Freq: NEEDED Status: Active Protocol: Document 03/12/22 10:40 AB (Rec: 03/12/22 13:13 AB [id number]) Physical Therapy Treatment Education Education Provided Precautions,Weight Bearing Status,Post-Op Packet,Safety M7 PT-IP Assessment and Plan Start: 03/12/22 12:53 Freq: NEEDED Status: Active Protocol: Document 03/12/22 10:40 AB (Rec: 03/12/22 13:13 AB [email or web address]) PT Summary Assessment and Plan Potential Rehabilitation Potential Fair Status of Condition at Evaluation Evolving Summary Impairments Pain,ROM,Strength,Balance, Coordination,Sensation,Tone, Cognition,Bed Mobility, Transfers,Gait,Activity Tolerance Assessment Summary pt requiring max A x 2 with mobility using PFW and will require SNF rehab at this time . will continue to assess progress. Goals Bed Mobility Goal Minimal Assistance Transfer Goal Minimal Assistance,Front Wheeled Walker Gait Goal Minimal Assistance,Front Wheel Walker Gait Distance 25 Other Goals mobility using PFW improve bed mobility, transfers and ambulation using PFW 50 ft SBA Days to Meet Goals 10 Frequency of Treatment Frequency Of Treatment Twice a Day Treatment Plan Physical Therapy Treatment Plan Bed Mobility Training,Transfer Training,Gait Training, Therapeutic Exercise,Balance Retraining,Post Op Education, Discharge Planning,Hot or Cold Pack,Neuromuscular Re-ed, Coordination Retraining,Manual Therapy Precautions Posterior Hip Precautions No Hip Flexion > 90 degrees,No Hip Internal Rotation,No Hip Adduction Weight Bearing Status Allowed Weight Bearing Amount (enter % RLE: WBAT or #) (%) RUE: NWB on wrist; may weight bear through FA (per Dr. Orr's note dated 03/10) Recommendations To Nursing Amount of Assist Needed Mechanical Lift Discharge Recommendations PT Discharge Recommendations SNF Rehab Transportation Needs at Discharge Wheelchair/Cabulance
--- NOTE | 2022-03-12 11:35 | OT.IP.EVAL ---
Current Diagnoses Unspecified protein-calorie malnutrition (03/10/22) Other developmental disorders of speech and language (03/10/22) Essential (primary) hypertension (03/10/22) Nonrheumatic aortic valve disorder, unspecified (03/10/22) Cardiomegaly (03/10/22) Age-related osteoporosis with current pathological fracture, unspecified femur, initial encounter for fracture (03/10/22) Dysphagia, unspecified (03/10/22) Unspecified fracture of the lower end of unspecified radius, initial encounter for closed fracture (03/10/22) Fracture of unspecified part of neck of right femur, initial encounter for closed fracture (03/10/22) Surgery Performed Operation Date: 03/11/22 17:30 Actual Procedures p Hip Hemiarthroplasty(Right) - Krystal Smith MD Past Medical History (Last Reviewed 03/12/22 @ 12:41 by Pippa Burr PA-C) 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 Essential hypertension Hearing problem Medicare annual wellness visit, subsequent Osteoporosis Respiratory infection Seasonal allergies Surgical History (Last Reviewed 03/12/22 @ 12:41 by Pippa Burr PA-C) Anesthesia Femur fracture (~2011) History of tonsillectomy (~1969) Status post cholecystectomy (~1983) Status post colonoscopy (~2008) Wrist fracture (~2011) Occupational Therapy Inpatient Evaluation/Re-Eval M1 PT/OT-IP Prior Functional Status Start: 03/12/22 12:53 Freq: NEEDED Status: Active Protocol: Document 03/12/22 10:43 [facility]3] (Rec: 03/12/22 13:33 [facility]3] [id number]) Medical Review Prior Functional Status Medical History Reviewed Yes Communication pt has aphasia and communicates by writing; able to answer question and follow instructions but requires repetitions Mobility and Gait pt stated that she is independent with all mobilities and ambulation without AD Activities of Daily Living and IADL's Pt states able to do her ADLs, and has assist with IADL's, mail, bills and pills. Pt states does her own laundry which is located downstairs. Prior Functional Level (Other details) Pt has expressive aphasia and use of write communication board to write with in order to commumicate. Social History Household Members children Living Arrangements House Number of Floors (Floors) 3 or More Floors Number of Stairs To Enter/Railing? pt lives on a split level house: 7 steps with B rails ascending from the garage to get to main living area ; 7 steps B rails from the garage to go down to the basement/ laundry area Home Environment Standard Height Toilet,Walk in Shower,Built-In Shower Seat Home Equipment Straight Cane,Grab Bars Near Toilet,Grab Bars In Shower Additional Social History Comment has a caregiver that comes in to assist with house chores once a week for 2-3 hours M2 OT-IP Current Condition Start: 03/12/22 11:39 Freq: Status: Active Protocol: Document 03/12/22 10:43 [facility]3] (Rec: 03/12/22 13:33 [facility]3] [id number]) Occupational Therapy Current Condition Current Condition Evaluation Date 03/12/22 Treatment Diagnosis Right femoral neck fx, s/p R FRANCISCO, right wrist fx Diagnosis Onset Date 03/10/22 Post Operative Precautions Posterior Hip Precautions No Hip Flexion > 90 degrees,No Hip Internal Rotation,No Hip Adduction Other Precautions Right wrist NWB, okay to bear weight on her right forearm per Dr Rowell. M3 OT- IP Subjective and Pain Start: 03/12/22 11:39 Freq: Status: Active Protocol: Document 03/12/22 10:43 [facility]3] (Rec: 03/12/22 13:33 [facility]3] [id number]) OT- Subjective Occupational Therapy Visit Type Type Initial Evaluation Visit Start Time 10:43 Visit Stop Time 11:35 Total Visit Minutes 52 Occupational Therapy Visit Comments Patient Comments Pt agreed to get up , PT also present due to complexity of transfer and pt needing extensive assist for ADl and mobility at this time. Patient/Caregiver Goals To get better. OT Pain Assessment Pain When Pain Assessed At Rest Pain Present Pain Present Denied Pain M4 OT- IP ADL's Start: 03/12/22 11:39 Freq: Status: Active Protocol: Document 03/12/22 10:43 [facility]3] (Rec: 03/12/22 13:33 [facility]3] [id number]) OT BKQ-Pbwv-Aaktcil Comments OT Self-Feeding Comments Pt will need set-up as unable to use her right hand functionally as her arm in a volar splint. OT ADL-Grooming Comments OT Grooming Comments Pt refused to do at this time. OT ADL-Oral Care Comments Oral Care Comments Pt refused to do at this time. OT ADL-Dressing General Eval Lower Body Dressing Ability Total Assistance Comments OT Dressing Comments socks OT ADL-Toileting General Evaluation Toileting Ability Total Assistance Comments OT Toileting Comments lyles in place OT ADL-Bathing Comments OT Bathing Comments Sponge bath more appropriate at this time due to decreased mobility and balance. M5 OT- IP IADL's Start: 03/12/22 11:39 Freq: Status: Active Protocol: Document 03/12/22 10:43 [facility]3] (Rec: 03/12/22 13:33 [facility]3] [id number]) OT-Instrumental Activities of Daily Living Deficits IADL Deficits Identified Deficits Home Safety Awareness Awareness of Need for Assistance at Home Good Awareness Medication Management Medication Management Comments Prior pt states was able to do on her own. Money Management Money Management Comments Prior pt states was able to do on her own. M6 OT- IP Functional Cognition Start: 03/12/22 11:39 Freq: Status: Active Protocol: Document 03/12/22 10:43 [facility]3] (Rec: 03/12/22 13:33 [facility]3] [id number]) Cognitive Factors Limiting Selfcare Function Cognitive Ability Level of Alertness Alert Patient Orientation Name,Place,Situation Attention Span Ability Capable of Focused Attention, Capable of Sustained Attention Ability to Follow Commands Able to Follow One Step Commands Cognitive Comments Cognitive Assessment Comments Pt needing use of write board to communicate as has speech deficits from dysphasia. Pt able to follow simple commands for ADl and mobility needs. It will be beneficial to continue to go over posterior hip precautions with the pt over and over. OT- Vision and Hearing OT- Vision Assessment Visual Acuity Glasses All The Time M7 OT- IP Mobility and Balance Start: 03/12/22 11:39 Freq: Status: Active Protocol: Document 03/12/22 10:43 [facility]3] (Rec: 03/12/22 13:33 [facility]3] [id number]) OT- Bed Mobility Assessment Supine to Sit Supine to Sit Assist Maximum Assistance,1 Person Assistance,2 Person Assistance OT-Transfer Assessment Sit to and From Stand Sit to and from Stand Maximum Assistance,2 Person Assistance Transfers Transfer Ability Maximum Assistance,Use of Upper Extremities Technique Transfer Destination Bed,Chair Transfer Technique Stand Step Pivot Devices Transfer Assistive Devices Gait Belt,Platform Walker Comments Mobility Comments MAXA 1-2 to assist to help move her legs to the edge of the bed and help keep her forwards. MAX AX 2 to stand with higher bed to right platform walker. Hand over hand assist for right arm placement. Pt needing assist to help slide her RLE forwards when coming to stand and also before sitting down to best follow her posterior hips precautions. MAX AX 2 skilled assist for balance, guide the FWW, and assist to move her legs and slowly assist with her to lower to the recliner. At this time best for nursing staff to use al lift with posterior hip precautions in mind, pt's nurse notified. OT- Balance Assessment Sitting Balance and Reactions Static Sitting Balance Ability Fair Dynamic Sitting Balance Ability Poor Standing Balance and Reactions Static Standing Balance Ability Poor Dynamic Standing Balance Ability Poor M8 OT- IP Objective Assessments Start: 03/12/22 11:39 Freq: Status: Active Protocol: Document 03/12/22 10:43 [facility]3] (Rec: 03/12/22 13:33 [facility]3] [id number]) OT Gross Range of Motion Upper Extremity Range of Motion Assessment Right Impaired OT Strength Comments Strength Comments LUE 4/5 and R shoulder 4/5 from elbow to distal for RUE NT due to right wrist fx. OT Sensation Assessment Edema Edema Comments Right hand swollen but able to machine mover her fingers. M9 OT- IP Assessment and Plan Start: 03/12/22 11:39 Freq: Status: Active Protocol: Document 03/12/22 10:43 [facility]3] (Rec: 03/12/22 13:33 [facility]3] [id number]) OT Summary Assessment and Plan Potential Rehabilitation Potential Good Analytic Complexity at Evaluation Moderate Summary OT Impairments Strength,Balance,Functional Mobility,Self-Feeding,Grooming ,Dressing,Toileting,Bathing, Toilet Transfers,Shower Transfers,Activity Tolerance Progress Towards Goals Slow Progress due to Medical Issues Assessment Summary Pt MOD complexity and main barriers are pain, NWB for right wrist and having to follow posterior hip precautions. Pt needing extensive assist for all ADl and mobility needs. Pt will greatly benefit from skilled rehab prior to going home. Goals Grooming Goal Independent Dressing Goal Independent Toileting Goal Independent Bathing Goal Standby Assistance Toilet Transfer Goal Independent Shower Transfer Goal Standby Assistance Days to Meet Goals 40 Frequency of Treatment Frequency Of Treatment Once a Day Treatment Plan OT Treatment Plan ADL Training,Functional Mobility,Patient/Family Education,Discharge Planning Discharge Recommendations OT Discharge Recommendations SNF Rehab Transportation Needs at Discharge Stretcher/Ambulance
--- NOTE | 2022-03-12 12:07 | CM.DPC ---
Addendum entered by Dara Conway 03/12/22 15:44: [facility] sets up transportation for patient, [employer] [facility] will pickle solution maker patient at 1400 tomorrow Tuesday 03/13. ORTHOTIST OR PROSTHETIST informs patient and daughter who indicate agreement and understanding. Plan: Patient to transfer to [facility] rehab tomorrow at 1400 via [employer] [facility]. JESSICA Arcos Original Note: DCP Note continued. Patient had surgery yesterday, awaiting PT/OT eval. Patient met with ST and least restrictive diet is recommended. ORTHOTIST OR PROSTHETIST calls patient's daughter who endorses family preference for [facility] rehab. Daughter reports she is working on filling out the DPOA paperwork. Daughter Vanessa states that she can be reached at (Ph.# [phone]) ORTHOTIST OR PROSTHETIST calls [facility] rehab, leaves requesting information about setting up transportation upon pt d/c. ORTHOTIST OR PROSTHETIST calls Mary at [facility] and informs her of patient/family preference for [facility] to be closer to family, September indicates understanding. Plan: Pending PT/OT eval, patient to d/c to [facility] rehab upon medical clearance, possibly tomorrow. Transportation TBD, awaiting response from [employer]. JSESICA Arcos
--- NOTE | 2022-03-12 12:39 | PM.PNPO.1 ---
Subjective Subjective Date Patient Seen: 03/12/22 Time Patient Seen: 12:39 Interval history: The patient is severely aphasic and uses a whiteboard communicate. Her daughter is present and facilitate communication. Her daughter also notes that she is seeing a neurologist at [facility] for weakness in her jaw and neck, which is contributing to her cachexia. Patient is complaining of minimal right hip pain this morning. She denies any numbness or tingling. Her right hand is in a splint and notes no pain with that. Exam Vital Signs (past 8 hours): - 03/12/22 08:10 Temperature 96.3 F L Blood Pressure 109/68 Oxygen Delivery Method Room Air Oxygen Flow Rate 0 Narrative Exam Narrative: Pleasant but cachectic 71-year-old female, resting comfortably in her chair, no acute distress. Right hip dressing is clean, dry, intact. There is no surrounding erythema, induration, or elia pus. Her right upper extremity is in a short-arm splint. She has right finger swelling and ecchymosis. She is able to move all of her digits appropriately. Bilateral lower extremity: Motor functions are grossly intact, sensation is grossly intact to light touch, calves are soft and nontender to palpation. Objective Labs Result Diagrams: 03/12/22 05:06 03/12/22 05:06 Labs: Laboratory Results - last 24 hr 03/12/22 03/12/22 05:06 05:06 Hgb 11.3 L Hct 33.5 L Sodium 147 H Potassium 5.1 Chloride 113 H Carbon Dioxide 25 BUN 29 H Creatinine 1.03 Estimated GFR 58 L BUN/Creatinine Ratio 28.2 H Glucose 173 H Calcium 8.2 L [facility] Medical History 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 Essential hypertension Hearing problem Medicare annual wellness visit, subsequent Osteoporosis Respiratory infection Seasonal allergies Surgical History Anesthesia Femur fracture (~2011) History of tonsillectomy (~1969) Status post cholecystectomy (~1983) Status post colonoscopy (~2008) Wrist fracture (~2011) Family History Brother Age: 68 Diabetes mellitus Heart disease Grandfather Stroke Mother Osteoporosis Hypertension Social History household members: children Smoking Status: Former smoker alcohol intake: never Assessment & Plan Post-op Postoperative Procedures: Procedures Operation Date: 03/11/22 17:30 Actual Procedure Side Surgeon p Hip Hemiarthroplasty Right Krystal Smith MD Postoperative day: 1 Postoperative status narrative: -stable status post right hip hemiarthroplasty, posterior approach -right radius torus fracture -low urine output, cachexia, significant aphasia and dysphagia, LVH, HTN, aortic valve calcification, being managed by the hospitalist team. Postoperative plan narrative: -mobilize with physical therapy. Weightbearing as tolerated with front wheel walker, may need a platform walker upon discharge due to her right upper extremity fracture and splint. Maintain posterior hip precautions x6 weeks -continue with multimodal pain management -aspirin 81 mg twice daily x6 weeks for DVT prophylaxis -low urine output, cachexia, significant aphasia and dysphagia, LVH, HTN, aortic valve calcification, being managed by the hospitalist team. -disposition to [facility], likely tomorrow, per primary team -follow-up with orthopedics in 10-14 days for postoperative visit and repeat x-rays. If she has significant difficulty with mobilization and transportation, okay for SNF to do wound check at 2 weeks. She will need to be seen by at 6 weeks postoperatively for x-rays. Quality VTE Deep Vein Thrombosis/Pulmonary Embolism Present on Admission: No
[2022-03-12 13:21] VITALS: BP 104/67; PULSE 80; RESP 17; TEMP 36.7; O2SAT 95
--- NOTE | 2022-03-12 13:55 | PT.IPTN ---
Current Diagnoses Unspecified protein-calorie malnutrition (03/10/22) Other developmental disorders of speech and language (03/10/22) Essential (primary) hypertension (03/10/22) Nonrheumatic aortic valve disorder, unspecified (03/10/22) Cardiomegaly (03/10/22) Age-related osteoporosis with current pathological fracture, unspecified femur, initial encounter for fracture (03/10/22) Dysphagia, unspecified (03/10/22) Unspecified fracture of the lower end of unspecified radius, initial encounter for closed fracture (03/10/22) Fracture of unspecified part of neck of right femur, initial encounter for closed fracture (03/10/22) Surgery Performed Operation Date: 03/11/22 17:30 Actual Procedures p Hip Hemiarthroplasty(Right) - Krystal Smith MD Physical Therapy Treatment Note M2 PT-IP Current Condition Start: 03/12/22 12:53 Freq: NEEDED Status: Active Protocol: Document 03/12/22 10:40 AB (Rec: 03/12/22 13:13 AB [id number]) Physical Therapy Current Condition Current Condition Evaluation Date 03/12/22 Treatment Diagnosis GLF; R hip hemiarthroplasty; R wrist fx; difficulty in walking Onset Date 03/10/22 M3 PT-IP Subjective Start: 03/12/22 12:53 Freq: NEEDED Status: Active Protocol: Document 03/12/22 13:55 AB (Rec: 03/12/22 16:36 AB [id number]) Subjective Physical Therapy Visit Type Type Treatment Note Visit Start Time 13:55 Visit Stop Time 14:17 Total Visit Minutes 22 Number of TEACHER LIP READING Visits 0 Physical Therapy Visit Comments Patient Comments agreeable to do PT M4 PT-IP Mobility and Gait Start: 03/12/22 12:53 Freq: NEEDED Status: Active Protocol: Document 03/12/22 13:55 AB (Rec: 03/12/22 16:36 AB [id number]) PT-Bed Mobility Assessment Supine to Sit Supine to Sit Maximum Assistance,2 Person Assistance,Head of Bed Elevated,Bedrails Sit to Supine Sit to Supine Total Assistance,2 Person Assistance,Head of Bed Elevated,Bedrails Scooting Scooting to Edge of Bed Dependent PT-Transfer Assessment Comments Mobility Comments NAC in room. Pt sitting on the bed and eating and has difficulty swallowing due to dysphagia and wanting to bend forward in a long sitting position to be able to use the suction. reminded pt on her posterior hip precautions and how this is going to affect if she bends forward more than 90 degrees. informed pt pt she has to sit on the EOB and PT can position her and not get over 90 degrees if she wants to bend her trunk forward. Pt agreed to sit on EOB. completed supine to sit HOB elevated and use bed rail max A x 2 and max cues. total A for scooting to EOB. Elevated bed up for pt not to go over 90 degress when bending forward. pt requiring max A x 1-2 for sitting balance. pt was able to use suction. Pt wants to finish eating and rest afterwards and does not want to do further PT. assisted pt back to bed. Total A x 2 for sit to supine. positioned pt in bed. call light and table placed within reach. M5 PT-IP Objective Assessments Start: 03/12/22 12:53 Freq: NEEDED Status: Active Protocol: Document 03/12/22 10:40 AB (Rec: 03/12/22 13:13 AB [id number]) Orientation Orientation/Cognition Level of Alertness Alert Orientation Name Language Function Ability Expressive Aphasia Safety Awareness Decreased Safety Awareness Gross Range of Motion Lower Extremity ROM Assessment Bilaterally Impaired Strength Lower Extremity Strength Assessment Bilaterally Impaired Hip 3-/5 Knee 3+/5 Muscle Tone Muscle Tone WNL Yes M6 PT-IP Treatment Start: 03/12/22 12:53 Freq: NEEDED Status: Active Protocol: Document 03/12/22 13:55 AB (Rec: 03/12/22 16:36 AB [id number]) Physical Therapy Treatment Education Education Provided Precautions,Safety M7 PT-IP Assessment and Plan Start: 03/12/22 12:53 Freq: NEEDED Status: Active Protocol: Document 03/12/22 13:55 AB (Rec: 03/12/22 16:36 AB [id number]) PT Summary Assessment and Plan Potential Rehabilitation Potential Fair Summary Impairments Pain,ROM,Strength,Balance, Coordination,Sensation,Tone, Cognition,Bed Mobility, Transfers,Gait,Activity Tolerance Progress Towards Goals Slow Progress due to Medical Issues,Slow Progress due to Activity Tolerance,Slow Progress - Other Assessment Summary pt requiring max A x 2 to total A x 2 for bed mobility and will require SNF rehab to improve overall strength and function. Goals Bed Mobility Goal Minimal Assistance Transfer Goal Minimal Assistance,Front Wheeled Walker Gait Goal Minimal Assistance,Front Wheel Walker Gait Distance 25 Other Goals mobility using PFW improve bed mobility, transfers and ambulation using PFW 50 ft SBA Days to Meet Goals 10 Frequency of Treatment Frequency Of Treatment Twice a Day Treatment Plan Physical Therapy Treatment Plan Bed Mobility Training,Transfer Training,Gait Training, Therapeutic Exercise,Balance Retraining,Post Op Education, Discharge Planning,Hot or Cold Pack,Neuromuscular Re-ed, Coordination Retraining,Manual Therapy Precautions Posterior Hip Precautions No Hip Flexion > 90 degrees,No Hip Internal Rotation,No Hip Adduction Weight Bearing Status Allowed Weight Bearing Amount (enter % RLE: WBAT or #) (%) RUE: NWB on wrist; may weight bear through FA (per Dr. Orr's note dated 03/10) Recommendations To Nursing Amount of Assist Needed Mechanical Lift Discharge Recommendations PT Discharge Recommendations SNF Rehab Transportation Needs at Discharge Wheelchair/Cabulance
[2022-03-12 16:41] VITALS: BP 108/68; PULSE 75; RESP 18; TEMP 36.5; O2SAT 93
--- NOTE | 2022-03-12 17:08 | P.PN_ITS ---
Subjective Subjective Date Patient Seen: 03/12/22 Interval history: The patient is severely aphasic and uses a whiteboard communicate. She denies any hip pain this afternoon. Denies chest pain, shortness of breath, abdominal pain. Continues to work with speech therapy here. Exam Vital Signs (past 8 hours): - 03/12/22 13:21 03/12/22 16:41 Temperature 98.1 F 97.7 F Pulse Rate 80 75 Respiratory Rate 17 18 Blood Pressure 104/67 108/68 Pulse Oximetry 95 93 Oxygen Flow Rate 0 0 Oxygen Delivery Method Room Air Oxygen Flow Rate 0 Narrative Exam Narrative: General:? Patient is well developed, appears poorly nourished, in no distress at this time. HEENT:? Normocephalic, atraumatic, extraocular muscles intact, oral pharynx is clear and mucous membranes are dry. Neck: supple and symmetric, trachea is midline, no cervical adenopathy. Negative for JVD Chest:? Normal AP diameter and contour without kyphoscoliosis, no tachypnea, equal chest rise bilaterally. Lungs:? CTA b/l no wheezing rhonchi or rales. Cardio:?RRR no m/r/g. Abdomen: S NT ND. Extremities: No edema or joint effusions. No cyanosis or clubbing. R arm in cast. Skin:? Pale,? Warm to touch,dry and intact without rashes, ulcerations or p etechiae.? Neuro:? Alert and orientated x3,? sensation to touch intact in all extremities, no gross deficits noted of cranial nerves. Psych:? Patient has a well-kept appearance, appropriate affect, mental status attitude thought context and judgment are appropriate for age. Objective Labs Result Diagrams: 03/12/22 05:06 03/12/22 05:06 Labs: Laboratory Results - last 24 hr 03/12/22 03/12/22 05:06 05:06 Hgb 11.3 L Hct 33.5 L Sodium 147 H Potassium 5.1 Chloride 113 H Carbon Dioxide 25 BUN 29 H Creatinine 1.03 Estimated GFR 58 L BUN/Creatinine Ratio 28.2 H Glucose 173 H Calcium 8.2 L PFSH Medical History 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 Essential hypertension Hearing problem Medicare annual wellness visit, subsequent Osteoporosis Respiratory infection Seasonal allergies Surgical History Anesthesia Femur fracture (~2011) History of tonsillectomy (~1969) Status post cholecystectomy (~1983) Status post colonoscopy (~2008) Wrist fracture (~2011) Family History Brother Age: 68 Diabetes mellitus Heart disease Grandfather Stroke Mother Osteoporosis Hypertension Social History household members: children Smoking Status: Former smoker alcohol intake: never Assessment & Plan Assessment and plan (1) Closed fracture of right hip: Status: Acute (2) 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: Status: Acute (3) Dysphagia: Qualifiers: Dysphagia type: unspecified Qualified Code(s): R13.10 - Dysphagia, unspecified Status: Acute (4) LVH (left ventricular hypertrophy): Status: Acute (5) Essential hypertension: Status: Chronic (6) Aortic valve calcification: Status: Acute Assessment & Plan narrative: Closed pathologic right hip fracture secondary to fall -patient is high-risk, severe protein calorie malnutrition, - continue pain control, PT/OT History of hypertension, cardiomegaly, left ventricular hypertrophy, aortic valve calcification -patient had a cardiology evaluation July, no specific treatment recommended at this time. Continue to monitor blood pressures while the patient in the hospital. Severe Acute on Chronic Protein Calorie Malnutrition r/t nausea, difficulty eating aeb BMI 16.7 (severe), MNA 6 (malnourished), NPFE shows severe muscle and fat wasting globally, pt supplementing with inappropriate low kcal ONS at home, pt lives alone, is aphasic with dysphagia. -The patient is at much higher risk for medical and surgical complications because of his malnutrition.? This increases the difficulty and complexity of medical and surgical interventions and increases the chances of poor outcomes such as morbidity and mortality. - speech therapy to continue, recommending MBS. Has been ongoing issue and recommend continued outpatient follow up at discharge. SCDs for DVT prophylaxis at this time, consider chemical prophylaxis based on orthopedic recommendations. PPI for GI prophylaxis. Patient is full code Dispo: plan for SNF. COVID-19 COVID-19 status: Negative Time Spent With Patient Critical Care time: I spent a total of [] minutes of critical care time on this patient's care today; this time is exclusive of procedural time. Quality VTE Deep Vein Thrombosis/Pulmonary Embolism Present on Admission: No
[2022-03-12 20:00] VITALS: BP 123/61; PULSE 99; RESP 26; TEMP 36.4; O2SAT 85
[2022-03-12 22:15] VITALS: PULSE 120; RESP 18; O2SAT 97
[2022-03-13 01:00] VITALS: BP 111/65; PULSE 92; RESP 20; TEMP 36.6; O2SAT 91
[2022-03-13 05:00] VITALS: BP 108/84; PULSE 84; RESP 18; TEMP 36.2; O2SAT 92
[2022-03-13 08:00] VITALS: BP 120/75; PULSE 63; RESP 18; TEMP 37.1; O2SAT 100
[2022-03-13 08:15] VITALS: O2SAT 92
--- NOTE | 2022-03-13 09:26 | PM.PNPO.1 ---
Subjective Subjective Date Patient Seen: 03/13/22 Time Patient Seen: 09:26 Interval history: The patient is severely aphasic and uses a whiteboard communicate.? Patient nods her head when I ask if her pain is controlled. Denies fever or chills. Exam Vital Signs (past 8 hours): - 03/13/22 05:00 03/13/22 08:15 Temperature 97.1 F L Pulse Rate 84 Respiratory Rate 18 Blood Pressure 108/84 Pulse Oximetry 92 92 Oxygen Delivery Method Nasal Cannula Oxygen Flow Rate 5 5 Fraction of Inspired Oxygen 40 Fraction of Inspired Oxygen 40 SaO2/FiO2 Ratio 230 Oxygen Delivery Method Nasal Cannula Oxygen Flow Rate 5 Narrative Exam Narrative: Pleasant but cachectic 71-year-old female, resting comfortably in her bed, no acute distress.? Right hip dressing is clean, dry, intact.? There is no surrounding erythema, induration.? Her right upper extremity is in a short-arm splint.? She has right finger swelling and ecchymosis.? She is able to move all of her digits appropriately.? Bilateral lower extremity:? Motor functions are grossly intact, sensation is grossly intact to light touch, calves are soft and nontender to palpation. 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 Essential hypertension Hearing problem Medicare annual wellness visit, subsequent Osteoporosis Respiratory infection Seasonal allergies Surgical History Anesthesia Femur fracture (~2011) History of tonsillectomy (~1969) Status post cholecystectomy (~1983) Status post colonoscopy (~2008) Wrist fracture (~2011) Family History Brother Age: 68 Diabetes mellitus Heart disease Grandfather Stroke Mother Osteoporosis Hypertension Social History household members: children Smoking Status: Former smoker alcohol intake: never Assessment & Plan Post-op Postoperative Procedures: Procedures Operation Date: 03/11/22 17:30 Actual Procedure Side Surgeon p Hip Hemiarthroplasty Right Krystal Smith MD Postoperative day: 2 Postoperative status: doing well Postoperative status narrative: -stable status post right hip hemiarthroplasty, posterior approach -right radius torus fracture -low urine output, cachexia, significant aphasia and dysphagia, LVH, HTN, aortic valve calcification, being managed by the hospitalist team. Postoperative plan narrative: -mobilize with physical therapy. Weightbearing as tolerated with front wheel walker, may need a platform walker upon discharge due to her right upper extremity fracture and splint. Maintain posterior hip precautions x6 weeks -continue with multimodal pain management -aspirin 81 mg twice daily x6 weeks for DVT prophylaxis -low urine output, cachexia, significant aphasia and dysphagia, LVH, HTN, aortic valve calcification, being managed by the hospitalist team. -disposition to [place], likely tomorrow, per primary team -follow-up with orthopedics in 10-14 days for postoperative visit and repeat x-rays. If she has significant difficulty with mobilization and transportation, okay for SNF to do wound check at 2 weeks. She will need to be seen by at 6 weeks postoperatively for x-rays. Quality VTE Deep Vein Thrombosis/Pulmonary Embolism Present on Admission: No
[2022-03-13] MEDS: SODIUM CHLORIDE 0.9% FLUSH 10 ML IV (09:29)
[2022-03-13] MEDS: dilTIAZem CD 180 MG CAP 360 MG PO (09:35)
--- NOTE | 2022-03-13 10:17 | PM.DS.1 ---
History of Present Illness History of Present Illness Date Patient Seen: 03/13/22 Chief complaint: GLF/rt wrist&hip pain Narrative: Per admitting provider, 71-year-old female former smoker with history of speech deficit, dysphagia, aortic valve calcification and cardiomegaly presents by EMS for evaluation of a ground level fall which resulted in right wrist and hip injury.? She denies any prodromal symptoms such as dizziness, weakness or lightheadedness and states that she had fallen earlier today suffering injuries as stated.? Both wrist and hip have increased pain with range of motion and palpation.? She denies any head neck or back pain.? She denies any chest pain or shortness of breath.? She is had no nausea, vomiting or diarrhea.I called patient daughter Ms. Rao who works here at [facility], confirms more details regarding patient's overall status of health. Patient is been having weight loss for almost 1 year, attributed to poor eating and poor swallowing efforts. She had an extensive malignancy workup done as an outpatient, negative. She does have speech therapy appointment today for swallow evaluation, unclear etiology are no specific diagnosis given at this time. Patient communicates mostly by writing on the white board. Patient was in pain when I saw her on the floor, improved with Dilaudid. After pain medication, she looks more comfortable. It is unclear from the notes are the history whether patient is on diltiazem for irregular heart rate versus just hypotension? Discharge Providers Provider Date of admission: 03/10/22 02:32 Discharge Date: 03/13/22 Primary care physician: Yves Liu DO Consults: 03/10/22 05:14 Consult to Dietitian, Adult Routine Comment: Reason For Exam: weight loss, unintentional 03/10/22 07:30 Consult to Speech Therapy Evaluate & Treat Comment: Hx of dysphagia, wt loss, speech difficulty Physician Instructions: Evaluate and treat 03/11/22 21:53 Consult to Discharge Planning Routine Comment: Consult to Physical Therapy Evaluate & Treat Comment: Physician Instructions: post op FRANCISCO protocol 03/12/22 08:54 Consult to Occupational Therapy Evaluate & Treat Comment: Physician Instructions: Evaluate and treat Discharge provider: Rakesh Fiore DO Summary Hospital Course Discharge Diagnosis: Closed pathologic right hip fracture?secondary to fall History of?hypertension, cardiomegaly, left ventricular hypertrophy, aortic valve calcification Severe Acute on Chronic Protein Calorie Malnutrition? Hospital Course: This is a 71 year old female with PMH of HTN, LVH, aphasia with dysphagia due to unknown condition being currently evaluated as an outpatient admitted with a right hip fracture. She underwent surgical interventions with orthopedic surgery for repair of her fracture. She had an uncomplicated post operative course and no changes to her usual home medications are recommended at this time. She should continue on thin liquids with pureed diet for dysphagia and continued speech therapy at SNF, where she was transitioned to for continued PT and OT as well from her hip fracture at the time of discharge. Time Spent with Patient Time spent: Greater than 30 minutes Exam Vital Signs (past 8 hours): - 03/13/22 05:00 03/13/22 08:15 03/13/22 08:00 Temperature 97.1 F L 98.7 F Pulse Rate 84 63 Respiratory Rate 18 18 Blood Pressure 108/84 120/75 Pulse Oximetry 92 92 100 Oxygen Delivery Method Nasal Cannula Oxygen Flow Rate 5 5 Fraction of Inspired Oxygen 40 Fraction of Inspired Oxygen 40 SaO2/FiO2 Ratio 230 Oxygen Delivery Method Nasal Cannula Oxygen Flow Rate 5 Narrative Exam Narrative: General:? Patient is well developed, appears poorly nourished, in no distress at this time. HEENT:? Normocephalic, atraumatic, extraocular muscles intact, oral pharynx is clear and mucous membranes are dry. Neck: supple and symmetric, trachea is midline, no cervical adenopathy. Negative for JVD Chest:? Normal AP diameter and contour without kyphoscoliosis, no tachypnea, equal chest rise bilaterally. Lungs:? CTA b/l no wheezing rhonchi or rales. Cardio:?RRR no m/r/g. Abdomen: S NT ND. Extremities: No edema or joint effusions. No cyanosis or clubbing. R arm in cast. Skin:? Pale,? Warm to touch,dry and intact without rashes, ulcerations or petechiae.? Neuro:? Alert and orientated x3,? sensation to touch intact in all extremities, no gross deficits noted of cranial nerves. She cannot speak due but communicates via whiteboard. Psych:? Patient has a well-kept appearance, appropriate affect, mental status attitude thought context and judgment are appropriate for age. 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 Essential hypertension Hearing problem Medicare annual wellness visit, subsequent Osteoporosis Respiratory infection Seasonal allergies Surgical History Anesthesia Femur fracture (~2011) History of tonsillectomy (~1969) Status post cholecystectomy (~1983) Status post colonoscopy (~2008) Wrist fracture (~2011) Family History Brother Age: 68 Diabetes mellitus Heart disease Grandfather Stroke Mother Osteoporosis Hypertension Social History household members: children Smoking Status: Former smoker alcohol intake: never Discharge Plan Discharge Plan Patient Disposition: SNF Other facility: [place] Provider Discharge Comment: 71 F with acute on chronic protein malnutrition due to dyphagia of unknown etiology, being evaluated with outpatient speech and neurology consultations (dr. saldivar), admitted with a hip fracture. She underwent surgery, had an uncomplicated post operative course, and is transitioning to SNF for continued therapies at discharge. Discharge orders & Medications Prescriptions: New aspirin 81 mg Tablet,Delayed Release (Dr/Ec) 81 mg PO BID 40 Days Qty: 80 0RF docusate sodium 100 mg Capsule 100 mg PO BID Qty: 60 0RF hydromorphone 2 mg Tablet 2 mg PO Q3H PRN (Reason: Pain, Severe (7-10)) 7 Days Qty: 30 0RF ondansetron 4 mg Tablet,Disintegrating 4 mg PO Q4HR PRN (Reason: Nausea) Qty: 30 0RF polyethylene glycol 3350 17 gram Powder In Packet 17 g PO DAILY PRN (Reason: Constipation) Qty: 30 0RF acetaminophen 325 mg Tablet 650 mg PO Q6HR PRN (Reason: fever or pain) 30 Days Qty: 60 0RF Continued diltiazem HCl 360 mg capsule,extended release 24hr 360 mg PO DAILY Qty: 90 0RF Follow up/Referrals: Krystal Smith MD [Physician] - (needs postoperative appointment in 10-14 days.) Yves Liu DO [Primary Care Provider] - Discharge Health Status Precautions: M[place] Diet/Activity/Treatments Diet: Diet as Tolerated Liquid consistency: Normal/Thin Food texture: Blenderized or pureed Diet comment: Pureed texture with thin liquids. Continue outpatient Speech therapy eval Other treatments: Dressing/Wound care: -Keep Aquacell dressing in place until postoperative follow-up office visit. -Okay to shower. Keep wound out of direct water stream. No soaking or submerging until all the scabs fall off (approximately 6 weeks). -No lotions, ointments, or scar creams directly to the incision until the wound is healed (4-6 weeks), -Please call the office if dressing becomes wet, soiled, or saturated. Activities: -Maintain anterior hip precautions x6 weeks. -Weight-bearing as tolerated. Use front wheeled walker, and progress to cane when safe. -Continue with home exercises as directed by your physical therapist. -Elevate ?toes above the nose if you have significant swelling in your lower leg. (A wedge pillow is easiest.) -Ice your incision as needed for pain/inflammation/swelling. Protect your skin with a folded pillowcase. Follow-up: -follow-up with orthopedics in 10-14 days for postoperative visit and repeat x-rays. If she has significant difficulty with mobilization and transportation, okay for SNF to do wound check at 2 weeks. She will need to be seen by at 6 weeks postoperatively for x-rays. Call the office if you have chest pain, shortness of breath, significant swelling that will not resolve with elevating, fever over 101?, significantly worsening pain, or are concerned you might need to go to the Emergency Room. [facility]: [phone] Skin/Wound/Dressing Care Report to your healthcare provider any signs of infection, such as:: chills, fever, night sweats, unusual drainage and unusual redness Special Rehabilitation Services Reason for rehabilitation: Post-operative therapy Rehab type: Physical therapy, Occupational therapy and Speech therapy Visit Report/Discharge Packet Instructions: DI for Hip Replacement Stand Alone Forms: Surgery Discharge Discharge Data Primary Care Provider: Yves Liu VTE Deep Vein Thrombosis/Pulmonary Embolism Present on Admission: No
[2022-03-13 14:00] VITALS: O2SAT 92
--- NOTE | 2022-03-13 14:09 | CM.DPNOTE ---
DC Note DC to [facility] today; completed and signed med list, Rx and PASRR faxed Transport via w/c, private payment JENNIFER Kamara giving report, COVJOSHUA PCR updated JW
--- NOTE | 2022-03-13 14:10 | CM.DPNOTE ---
Addendum entered by DONTA Jameson 03/13/22 14:16: [facility] at [place]: P [phone] F [phone] Original Note: DC Note Patient has been DC to [facility] today via [facility] Completed and signed med list, Rx and PASRR faxed to Antoinette at [place] IMM provided, patient aware and agreeable to plan. JENNIFER Mcnair giving nurse report JW
--- NOTE | 2022-03-13 14:38 | PC.NURSE ---
Per Dr. Fiore - Pt to keep lyles in for now for transfer to [facility] [place]. Meds returned to Pt from pharmacy. Report called to [facility] and all questions were answered
[2022-03-13 14:55] LABS: COVID19 -Nasal RAPID Negative (Negative)
--- NOTE | 2022-03-13 15:05 | PC.NURSE ---
Pt hoyered into [facility] for transfer to [place] by transfer personnel with all Belongings.
== END 2022-03-13 15:06 | DRG 521 ==
LOC: ED 03-10 01:56 → AC 03-10 02:33
PROVIDERS: Orthopaedic Surgery; Admitting Provider Family Medicine; Emergency Provider Emergency Medicine; PCP Family Medicine; Referring Provider Emergency Medicine; Visit Provider Internal Medicine
PROC: 0SRR0JZ Replacement of Right Hip Joint, Femoral Surface with Synthetic Substitute, Open Approach (ICD-10-PCS; CPT 27125; principal; 2022-03-11 17:30)
DX: M84.451A Pathological fracture, right femur, initial encounter for fracture (principal); E43 Unspecified severe protein-calorie malnutrition; Z68.1 Body mass index [BMI] 19.9 or less, adult; R13.10 Dysphagia, unspecified; R47.81 Slurred speech; I10 Essential (primary) hypertension; M84.433A Pathological fracture, right radius, initial encounter for fracture; Z20.822 Contact with and (suspected) exposure to COVID-19; Z87.891 Personal history of nicotine dependence
CPT/HCPCS: 29125; 36415; 73110; 73130; 73502; 80048; 80053; 85014; 85018; 85025; 85610; 87635; 92526; 92610; 94760; 96374; 96375; 97162; 97166; 97530; 99284; 99285; C1776; C9803; C9290; J0171; J0690; J1100; J1170; J2250; J2405; J2704; J3010